=== PATIENT | male | born 1940 | race Caucasian/White ===

== ENCOUNTER → 2018-09-28 08:13 | Outpatient (CLI) | payer MEDICARE, OTHER, SELFPAY ==
[2018-09-28 09:22] LABS: Add Manual Diff / Slide Review NO; Basophils Absolute Auto 0 /uL (0-100); Basophils Percent Auto 0.3 % (0-2); Eosinophils Absolute Auto 200 /uL (0-450); Eosinophils Percent Auto 2.3 % (2-4); Hematocrit 46.7 % (41-53); Hemoglobin 15.8 g/dL (13.5-17.5); Lymphocytes Absolute Auto 1700 /uL (1100-4500); Lymphocytes Percent Auto 23.8 % (25-40); Mean Corpuscular HGB Conc 33.8 % (30-36); Mean Corpuscular Hemoglobin 29.4 PG (26-34); Monocytes Absolute Auto 600 /uL (0-900); Monocytes Percent Auto 7.7 % (3-14); Neutrophils Absolute Auto 4800 /uL (1500-7000); Neutrophils Percent Auto 65.9 % (50-75); Platelet Count 215 X10^3/uL (150-400); Red Blood Cell Count 5.37 X10^6/uL (4.5-5.9); Red Cell Distribution Width 14.1 % (11.6-14.8); White Blood Cell Count 7.3 X10^3/uL (4.5-11.0)
[2018-09-28 10:37] LABS: TSH w/ Reflex to FT4 2.77 uIU/mL (0.47-4.68)
[2018-09-28 11:10] LABS: Alanine Aminotransferase 10 IU/L (21-72); Albumin 4.4 g/dL (3.5-5.0); Albumin Globulin Ratio 1.6 (1.0-2.8); Alkaline Phosphatase 89 U/L (38-126); Aspartate Aminotransferase 32 IU/L (17-59); Bilirubin Total 0.9 mg/dL (0.2-1.3); Blood Urea Nitrogen 21 mg/dL (9-20); Calcium 9.6 mg/dL (8.4-10.2); Carbon Dioxide 26 mmol/L (22-32); Chloride 106 mmol/L (98-107); Cholesterol 195 mg/dL (140-199); Estimated Glomerular Filt Rate > 60.0 mL/min (>60); Globulin 2.8 g/dL (1.7-4.1); Glucose 104 mg/dL (80-110); HDL Cholesterol 43 mg/dL (40-60); HEMOLYSIS < 15 (0-50); LDL Cholesterol Calculated 129 mg/dL (<100); Potassium 4.5 mmol/L (3.4-5.1); Sodium 140 mmol/L (137-145); Total Protein 7.2 g/dL (6.3-8.2); Triglycerides 116 mg/dL (35-150)
[2018-09-28 12:14] LABS: Folate > 20.0 ng/mL (2.76-20.0); Vitamin B12 309 pg/mL (239-931)
== END ==
PROVIDERS: PCP Family Medicine; Visit Provider Family Medicine
DX: E78.5 Hyperlipidemia, unspecified (principal); G96.9 Disorder of central nervous system, unspecified; I10 Essential (primary) hypertension; R25.1 Tremor, unspecified
CPT/HCPCS: 36415; 80053; 80061; 82607; 82746; 84443; 85025

== ENCOUNTER 2019-08-23 11:44 | Inpatient (IN) | payer MEDICARE, OTHER, SELFPAY ==
[2019-08-23] VITALS (10 sets, daily range): BP systolic 106–129; BP diastolic 61–74; PULSE 64–87; RESP 16–18; TEMP 37.2–38.7; O2SAT 92–97; BMI 26.3
--- NOTE | 2019-08-23 12:35 | DI.RAD.S_ITS ---
PROCEDURE: XR CHEST 1V INDICATIONS: CHANGE FROM 2 VIEW, TO 1 VIEW TECHNIQUE: One view of the chest was acquired. COMPARISON: None. FINDINGS: Surgical changes and devices: None. Lungs and pleura: Lungs are clear. No pleural effusions or pneumothorax. Mediastinum: Mediastinal contours appear normal. Heart size is normal. Bones and chest wall: No suspicious bony lesions. Age-appropriate bony degenerative changes are seen. Overlying soft tissues appear unremarkable. IMPRESSION: Unremarkable portable chest study for age. As clinically appropriate, a short-term followup chest series (with PA and lateral views) performed in deep inspiration is suggested for further evaluation. Dictated by: Castillo Cheng M.D. on 08/23/2019 at 12:06 Approved by: Castillo Cheng M.D. on 08/23/2019 at 12:06
--- NOTE | 2019-08-23 12:37 | PM.HP.1 ---
History of Present Illness History of Present Illness Date Patient Seen: 08/23/19 Time Patient Seen: 11:37 Chief complaint: Fever,Weakness,Cough Narrative: 78-year-old male who lives at [facility] patient has a history consistent with Parkinson's disease. He lives fairly independently although he is no longer driving. Patient states last week he began to feel ill. He had some mild coughing congestion about a week ago. Did not have productive sputum or fevers or chills. Said that lasted for about 24-48 hours. And then began to feel little bit weak and tired had decreased appetite and decreased energy patient then on Tuesday had a low-grade temperature. A temperature is been on and off since Tuesday. He said at that time his cough went away but he still had the temperature weakness decreased appetite. He said it became more and more difficult for him to get up and walk. In addition to the weakness he began to have shoulder neck and back pain and discomfort. Says is mild to moderate intensity. He finds that it is uncomfortable with position changes or even just holding still. In addition to the low-grade fever he also feels at times that he has had shortness of breath in addition to the back and neck discomfort. Says he is not coughing now. He does not have headache or blurry vision he says he is hearing fine he is swallowing okay patient states he is not nauseated but not hungry. He is having no abdominal pain. He has had no difficulty with urination or change in his bowel movements. Says it is hard for him to walk because he is weak. His temperatures at home with been radiating anywhere he said between 99 and 101. In my office is temperature is 101?. He is mildly hypotensive he is weak and having a hard time standing on his own and needs support for movement. Other than being at [facility] he has had no other previous exposures risks such as travel or unanticipated guest as they have been on lock-down. Patient History Surgical History History of cataract removal with insertion of prosthetic lens (Resolved) Status post arthroscopy (Resolved) Family & Social History Tobacco & Substance use: Smoking Status Never smoker alcohol intake current Meds Home Medications and Allergies Home Medications Medication Instructions Recorded Confirmed Type ASPIRIN (#ASPIR 81) 81 mg PO Q DAY #0 07/07/11 08/23/19 History Fish Oil (#OMEGA-3 FISH OIL) 3,600 mg PO #0 07/08/11 08/23/19 History Lutein (#LUTEIN) 6 mg PO QDAY #0 07/08/11 08/23/19 History cholecalciferol (vitamin D3) 1,000 iu PO QDAY #0 07/08/11 08/23/19 History [Vitamin D3] latanoprost [Xalatan] 1 drp OPHTH HS #0 07/08/11 08/23/19 History ranibizumab [Lucentis] 0.5 mg IO Q 8 WEEKS #0 07/08/11 08/23/19 History vitamins A,C,X-lhnf-spgjsx 2 sgl PO Q DAY #0 07/08/11 08/23/19 History [PreserVision AREDS] carbidopa 25 mg-levodopa 100 mg 1 tab PO TID 10/11/18 08/23/19 History tablet Allergies Allergy/AdvReac Type Severity Reaction Status Date / Time dexamethasone [From MAXITROL] Allergy Unknown unk Verified 08/23/19 11:25 neomycin [From MAXITROL] Allergy Unknown unk Verified 08/23/19 11:25 polymyxin B [From MAXITROL] Allergy Unknown unk Verified 08/23/19 11:25 polmycin Allergy Unknown unk Uncoded 08/23/19 11:25 triamethophin Allergy Unknown unk Uncoded 08/23/19 11:25 Exam Narrative Exam Narrative: Gen.: Alert oriented weak appearing somewhat pale HEENT: Pupils equal round and reactive tympanic membranes are clear oral mucosa is moist neck is supple no appreciable lymphadenopathy Cardio: S1-S2 systolic murmur present regular Respiratory: Lungs show no wheezes rhonchi or crackles normal respiratory effort. Abdomen: Soft nontender no rebound no guarding no appreciable liver spleen enlargement Extremities: Patient has full range of motion of extremities and 2+ reflexes patient has a resting tremor more prominent on his right hand than left Neurologic: Cranial nerves 2-12 intact. Tremor associated and some mild hyper reflexia Objective Labs Result Diagrams: 08/23/19 12:41 08/23/19 12:41 Assessment & Plan Assessment & Plan narrative: 78-year-old male with a fever hypotension intermittent cough. Patient seen and evaluated in the clinic. Because of his weakness hypotension fever and cough his age and underlying Parkinson's disease he will be admitted the hospital for observation and further workup and evaluation of his underlying medical condition. I am concerned initially for with infectious etiologies including pneumonia urinary tract infection or viral pneumonia. He will be admitted to the hospital for further evaluation and workup. He will be provided With a 500 cc fluid bolus. He will have a CBC comprehensive metabolic profile procalcitonin and lactic acid. Patient will have blood cultures drawn at the onset of can of fever. We ordered a chest x-ray and EKG He will have a viral PCR panel. Because of his difficult historian vague nature of his symptoms. Will do a CPK and troponin well to rule out underlying cardiac activity. He will be placed on DVT prophylaxis. He will be placed on droplet precautions and protection. Will monitor and evaluate the patient for symptoms over the next 24 hours. Because of his weakness and dehydration. He will be administered IV fluids. Will follow closely his laboratory test results. I reviewed with him his current code status which is a no code.
[2019-08-23] MEDS: SODIUM CHLORIDE 0.9% 500 ML 1000 ML IV (12:45)
[2019-08-23 12:51] LABS: INR 1.1 (0.9-1.3); Prothrombin Time 12.2 SECONDS (10.1-12.7)
[2019-08-23 12:54] LABS: PTT Partial Thromboplastin Tim 35 SECONDS (26.4-36.2)
[2019-08-23 12:57] LABS: Add Manual Diff / Slide Review NO; Basophils Absolute Auto 0 /uL (0-100); Basophils Percent Auto 0.1 % (0-2); Eosinophils Absolute Auto 0 /uL (0-450); Eosinophils Percent Auto 0.2 % (2-4); Hematocrit 35.1 % (41-53); Lymphocytes Absolute Auto 400 /uL (1100-4500); Lymphocytes Percent Auto 7.5 % (25-40); Mean Corpuscular HGB Conc 34.1 % (30-36); Mean Corpuscular Hemoglobin 29.7 PG (26-34); Mean Corpuscular Volume 87.1 fL (80-100); Monocytes Absolute Auto 300 /uL (0-900); Monocytes Percent Auto 6.4 % (3-14); Neutrophils Absolute Auto 4300 /uL (1500-7000); Neutrophils Percent Auto 85.8 % (50-75); Platelet Count 122 X10^3/uL (150-400); Red Blood Cell Count 4.03 X10^6/uL (4.5-5.9); Red Cell Distribution Width 13.8 % (11.6-14.8)
[2019-08-23 12:58] LABS: Creatine Kinase 246 U/L (55-170)
[2019-08-23 13:00] LABS: Alanine Aminotransferase 9 IU/L (<50); Albumin 3.9 g/dL (3.5-5.0); Albumin Globulin Ratio 1.3 (1.0-2.8); Alkaline Phosphatase 92 U/L (38-126); Aspartate Aminotransferase 72 IU/L (17-59); Bilirubin Total 0.7 mg/dL (0.2-1.3); Blood Urea Nitrogen 26 mg/dL (9-20); Calcium 8.5 mg/dL (8.4-10.2); Carbon Dioxide 25 mmol/L (22-32); Chloride 102 mmol/L (98-107); Estimated Glomerular Filt Rate > 60.0 mL/min (>60); Globulin 3.1 g/dL (1.7-4.1); Glucose 115 mg/dL (80-110); HEMOLYSIS 41 (0-50); Lactate (Lactic Acid) 0.7 mmol/L (0.7-2.1); Potassium 3.9 mmol/L (3.4-5.1); Sodium 138 mmol/L (137-145)
[2019-08-23 13:11] LABS: Troponin I < 0.012 ng/mL (0.01-0.034)
[2019-08-23 13:13] LABS: CKMB % Relative Index 0.8 % (1.5-5.0); Creatine Kinase MB 1.94 ng/mL (<2.37)
[2019-08-23 13:27] LABS: Procalcitonin < 0.05 ng/mL (<0.5)
[2019-08-23 14:05] LABS: Adenovirus Not Detected (Not Detect); Bordetella pertussis Not Detected (Not Detect); Chlamydophila pneumoniae Not Detected (Not Detect); Coronavirus 229E Not Detected (Not Detect); Coronavirus HKU1 Not Detected (Not Detect); Coronavirus NL 63 Not Detected (Not Detect); Coronavirus OC43 Not Detected (Not Detect); Human Metapneumovirus Not Detected (Not Detect); Human Rhinovirus/Enterovirus Not Detected (Not Detect); Influenza A Not Detected (Not Detect); Influenza B Not Detected (Not Detect); Mycoplasma pneumoniae Not Detected (Not Detect); Parainfluenza Virus 1 Not Detected (Not Detect); Parainfluenza Virus 2 Not Detected (Not Detect); Parainfluenza Virus 3 Not Detected (Not Detect); Parainfluenza Virus 4 Not Detected (Not Detect); Respiratory Syncytial Virus Not Detected (Not Detect)
[2019-08-23] MEDS: SODIUM CHLORIDE 0.9% 1,000 ML 120 ML IV (14:27)
[2019-08-23 15:05] LABS: Bacteria Urine None Seen
[2019-08-23 15:07] LABS: Appearance Urine UA CLEAR; Bilirubin Urine UA NEGATIVE (NEGATIVE); Color Urine UA YELLOW; Glucose Urine UA NEGATIVE (Negative); Ketones Urine UA TRACE (NEGATIVE); Leukocyte Esterase Urine UA NEGATIVE (NEGATIVE); Nitrite Urine UA NEGATIVE (Negative); Occult Blood Urine UA NEGATIVE (Negative); Protein Urine UA TRACE (Negative); Urobilinogen Urine UA 0.2 E.U./dL (0.2); pH Urine UA 5.5 (4.5-8.0)
[2019-08-23 15:20] LABS: Culture Indicated Urine Cult Not Indicated; RBC Urine 0-1/HPF (0-5/HPF); WBC Urine 1-5/HPF (0-5/HPF)
--- NOTE | 2019-08-23 15:25 | PC.NURSE ---
Pt was brought to the AC floor via wheelchair from the clinic at approx. 1200. Pt was made comfortable in room 223 and placed on droplet precautions for his respiratory symptoms. Pt was swabbed for respiratory panel, IV started in LUE, labs and UA sent for analysis. 500ml bolus administered per order. SCD's placed. Pt has been oriented to the room. He is in agreement to use call light to make his needs known.
--- NOTE | 2019-08-23 16:55 | PT-IP ANOTE ---
Received PT orders and reviewed the chart. Pt is undergoing rule out testing for COVID19. PT will hold evaluation until status is clarified or test result received.
[2019-08-23] MEDS: CARBIDOPA-LEVODOPA 25/100 TABLET 1 EACH PO (17:35)
[2019-08-23] MEDS: ACETAMINOPHEN 325 MG TABLET 650 MG PO (20:26)
[2019-08-24] VITALS (8 sets, daily range): BP systolic 109–136; BP diastolic 60–90; PULSE 63–101; RESP 18–22; TEMP 37.3–38.2; O2SAT 91–95
[2019-08-24] MEDS: SODIUM CHLORIDE 0.9% 1,000 ML 120 ML IV (01:35)
--- NOTE | 2019-08-24 06:56 | PM.PN.1 ---
Subjective Subjective Date Patient Seen: 08/24/19 Time Patient Seen: 06:56 Interval history: Patient had a good night. Still feeling weak muscle aches. Not having much of an appetite. Received IV fluids over the evening. Says he would like to try little bit of food. Still unsteady on his feet and frequent urination. Has complaints of intermittent cough no shortness of breath some mild neck and low back pain. Exam Vital Signs (past 8 hours): - 08/23/19 23:00 08/23/19 23:34 08/24/19 04:20 Temperature 101.1 F H Pulse Rate 65 78 Respiratory Rate 18 18 Blood Pressure 113/63 109/67 Pulse Oximetry 92 92 91 08/24/19 06:00 Temperature 100.8 F H Pulse Rate Respiratory Rate Blood Pressure Pulse Oximetry Oxygen Delivery Method Room Air Oxygen Flow Rate 0 Narrative Exam Narrative: Gen.: Alert no apparent distress HEENT: Pupils equal round and reactive or mucosa is dry neck is supple Cardio: S1-S2 regular rate and rhythm systolic murmur present Respiratory: Clear Abdomen: Soft nontender no rebound or guarding no liver spleen enlargement no appreciable hernias Extremities: Full range of motion Neurologic: Patient has a tremor. Objective Labs Result Diagrams: 08/23/19 12:41 08/23/19 12:41 Labs: Laboratory Results - last 24 hr 08/23/19 08/23/19 08/23/19 12:35 12:41 12:41 WBC 5.0 RBC 4.03 L Hgb 12.0 L Hct 35.1 L MCV 87.1 MCH 29.7 MCHC 34.1 RDW 13.8 Plt Count 122 L Neut % (Auto) 85.8 H Lymph % (Auto) 7.5 L [place] % (Auto) 6.4 Eos % (Auto) 0.2 L Baso % (Auto) 0.1 Neut # (Auto) 4300 Lymph # (Auto) 400 L [place] # (Auto) 300 Eos # (Auto) 0 Baso # (Auto) 0 PT 12.2 INR 1.1 APTT 35 Sodium Potassium Chloride Carbon Dioxide BUN Creatinine Estimated GFR BUN/Creatinine Ratio Glucose Lactate Calcium Total Bilirubin AST ALT Alkaline Phosphatase Total Creatine Kinase CK-MB (CK-2) CK-MB (CK-2) Rel Index Troponin I Total Protein Albumin Globulin Albumin/Globulin Ratio Procalcitonin Urine Color Urine Appearance Urine pH Ur Specific [place] Urine Protein Urine Glucose (UA) Urine Ketones Urine Occult Blood Urine Nitrate Urine Bilirubin Urine Urobilinogen Ur Leukocyte Esterase Urine RBC Urine WBC Urine Bacteria Ur Culture Indicated? Chlamy pneumoniae PCR Not detected Adenovirus (PCR) Not detected B.parapertussis DNA PCR Not detected Coronavirus OC43 (PCR) Not detected Coronavirus HKU1 (PCR) Not detected Coronavirus 229E (PCR) Not detected Coronavirus NL63 (PCR) Not detected Human Metapneumovir PCR Not detected Influenza Type A (PCR) Not detected Influenza Type B (PCR) Not detected M. pneumoniae (PCR) Not detected Parainfluenza 1 (PCR) Not detected Parainfluenza 2 (PCR) Not detected Parainfluenza 3 (PCR) Not detected Parainfluenza 4 (PCR) Not detected RSV (PCR) Not detected Entero/Rhino (PCR) Not detected 08/23/19 08/23/19 08/23/19 12:41 12:41 12:41 WBC RBC Hgb Hct MCV MCH MCHC RDW Plt Count Neut % (Auto) Lymph % (Auto) [place] % (Auto) Eos % (Auto) Baso % (Auto) Neut # (Auto) Lymph # (Auto) [place] # (Auto) Eos # (Auto) Baso # (Auto) PT INR APTT Sodium 138 Potassium 3.9 Chloride 102 Carbon Dioxide 25 BUN 26 H Creatinine 0.84 Estimated GFR > 60.0 BUN/Creatinine Ratio 31.0 H Glucose 115 H Lactate 0.7 Calcium 8.5 Total Bilirubin 0.7 AST 72 H ALT 9 Alkaline Phosphatase 92 Total Creatine Kinase CK-MB (CK-2) CK-MB (CK-2) Rel Index Troponin I Total Protein 7.0 Albumin 3.9 Globulin 3.1 Albumin/Globulin Ratio 1.3 Procalcitonin < 0.05 Urine Color Urine Appearance Urine pH Ur Specific [place] Urine Protein Urine Glucose (UA) Urine Ketones Urine Occult Blood Urine Nitrate Urine Bilirubin Urine Urobilinogen Ur Leukocyte Esterase Urine RBC Urine WBC Urine Bacteria Ur Culture Indicated? Chlamy pneumoniae PCR Adenovirus (PCR) B.parapertussis DNA PCR Coronavirus OC43 (PCR) Coronavirus HKU1 (PCR) Coronavirus 229E (PCR) Coronavirus NL63 (PCR) Human Metapneumovir PCR Influenza Type A (PCR) Influenza Type B (PCR) M. pneumoniae (PCR) Parainfluenza 1 (PCR) Parainfluenza 2 (PCR) Parainfluenza 3 (PCR) Parainfluenza 4 (PCR) RSV (PCR) Entero/Rhino (PCR) 08/23/19 08/23/19 12:45 15:04 WBC RBC Hgb Hct MCV MCH MCHC RDW Plt Count Neut % (Auto) Lymph % (Auto) [place] % (Auto) Eos % (Auto) Baso % (Auto) Neut # (Auto) Lymph # (Auto) [place] # (Auto) Eos # (Auto) Baso # (Auto) PT INR APTT Sodium Potassium Chloride Carbon Dioxide BUN Creatinine Estimated GFR BUN/Creatinine Ratio Glucose Lactate Calcium Total Bilirubin AST ALT Alkaline Phosphatase Total Creatine Kinase 246 H CK-MB (CK-2) 1.94 CK-MB (CK-2) Rel Index 0.8 L Troponin I < 0.012 Total Protein Albumin Globulin Albumin/Globulin Ratio Procalcitonin Urine Color Yellow Urine Appearance Clear Urine pH 5.5 Ur Specific [place] 1.020 Urine Protein Trace H Urine Glucose (UA) Negative Urine Ketones Trace H Urine Occult Blood Negative Urine Nitrate Negative Urine Bilirubin Negative Urine Urobilinogen 0.2 Ur Leukocyte Esterase Negative Urine RBC 0-1/hpf Urine WBC 1-5/hpf Urine Bacteria None seen Ur Culture Indicated? Cult not indicated Chlamy pneumoniae PCR Adenovirus (PCR) B.parapertussis DNA PCR Coronavirus OC43 (PCR) Coronavirus HKU1 (PCR) Coronavirus 229E (PCR) Coronavirus NL63 (PCR) Human Metapneumovir PCR Influenza Type A (PCR) Influenza Type B (PCR) M. pneumoniae (PCR) Parainfluenza 1 (PCR) Parainfluenza 2 (PCR) Parainfluenza 3 (PCR) Parainfluenza 4 (PCR) RSV (PCR) Entero/Rhino (PCR) Assessment & Plan Assessment & Plan narrative: 78-year-old male with Parkinson's disease living at assisted living with fever weakness and decreased ability to ambulate. Patient's influenza swab and PCR for respiratory panel is negative. Patient's chest x-ray looks good he is not hypoxic. COVID test is negative. No clear source of his fever as of yet. Cannot this cleared viral etiology. His urinalysis is good. Some mild back pain and muscle aches. I do not think he has underlying disc itis. His white blood cell count is normal. He is a little bit hypotensive and that is responded well to fluids. He still having a temperature and cough. Certainly stable enough to be transferred back to the assisted living. But I do not think will take him because of his fever and that is why he was brought in generally anyways because of that and his cough. Dehydration. Received IV fluid bolus yesterday and IV fluid last night. Will go ahead and decrease those down. Patient is taking good oral intake although not significant amount of solid foods but he is doing okay with fluids. Parkinson's disease. Resume regular Parkinson's medication. DVT prophylaxis. Patient will be continued on Lovenox. Disposition and plan discharge back to [facility] awaiting his COVID test. Or patient to become afebrile. Quality VTE Deep Vein Thrombosis/Pulmonary Embolism Present on Admission: No
[2019-08-24 07:40] LABS: Add Manual Diff / Slide Review NO; Basophils Absolute Auto 0 /uL (0-100); Basophils Percent Auto 0.3 % (0-2); Eosinophils Absolute Auto 0 /uL (0-450); Eosinophils Percent Auto 0.2 % (2-4); Hematocrit 41.6 % (41-53); Hemoglobin 14.1 g/dL (13.5-17.5); Lymphocytes Absolute Auto 800 /uL (1100-4500); Lymphocytes Percent Auto 11.3 % (25-40); Mean Corpuscular HGB Conc 33.8 % (30-36); Mean Corpuscular Hemoglobin 29.1 PG (26-34); Mean Corpuscular Volume 86.2 fL (80-100); Monocytes Absolute Auto 300 /uL (0-900); Monocytes Percent Auto 4.8 % (3-14); Neutrophils Absolute Auto 6000 /uL (1500-7000); Neutrophils Percent Auto 83.4 % (50-75); Platelet Count 145 X10^3/uL (150-400); Red Blood Cell Count 4.83 X10^6/uL (4.5-5.9); Red Cell Distribution Width 14.1 % (11.6-14.8); White Blood Cell Count 7.2 X10^3/uL (4.5-11.0)
[2019-08-24 07:54] LABS: Alanine Aminotransferase 50 IU/L (<50); Albumin 3.2 g/dL (3.5-5.0); Albumin Globulin Ratio 1.1 (1.0-2.8); Alkaline Phosphatase 89 U/L (38-126); Aspartate Aminotransferase 63 IU/L (17-59); BUN Creatinine Ratio 21.3 (6-22); Bilirubin Total 0.7 mg/dL (0.2-1.3); Blood Urea Nitrogen 16 mg/dL (9-20); Calcium 8.1 mg/dL (8.4-10.2); Carbon Dioxide 26 mmol/L (22-32); Chloride 105 mmol/L (98-107); Estimated Glomerular Filt Rate > 60.0 mL/min (>60); Globulin 2.8 g/dL (1.7-4.1); Glucose 103 mg/dL (80-110); HEMOLYSIS < 15 (0-50); Potassium 3.6 mmol/L (3.4-5.1); Sodium 139 mmol/L (137-145)
--- NOTE | 2019-08-24 08:30 | PT-IP ANOTE ---
Hold PT eval pending Coronavirus testing
[2019-08-24] MEDS: ENOXAPARIN 40 MG/0.4 ML SYRINGE SUBCUT (08:32)
[2019-08-24] MEDS: CARBIDOPA-LEVODOPA 25/100 TABLET 1 EACH PO ×3 (08:32→16:42)
--- NOTE | 2019-08-24 08:45 | CM.DANOTE ---
Addendum entered by Tracy Granado LPN 08/24/19 14:01: CAL Shrestha called back this afternoon and stated she would provide a form that the facility now has outlining what must be confirmed before they are able to accept a resident back to the facility who is on a COVID 19 rule out. Will make sure Dr. Cordova or rounding partners are aware. Have also alerted Sushma Kendall to the information and she states she will be sending this on to appropriate staff. Addendum entered by Tracy Granado LPN 08/24/19 08:58: PT was ordered but is on hold due to rule out process. See PT notes. Original Note: Discharge Planning/Care Management DCP: assessment: case received, EMR reviewed: Pt is on Rule Out Covid 19 precautions. Pt is an 78 year old male who admitted yesterday to care of PCP: Dr. Cordova. Payer: Medicare and [facility]. Admission status: in review: per UR CAL Lara. Pt does have underlying diagnosis of Parkinson's disease. Noted that pt lives at [facility]. Spoke with Henrietta Bunn: RN director. She confirmed that pt does reside [facility]. She does know that she seems at baseline to be A/O and gets around independently without an assistive device. Pt's son Pantera has been in contact with the facility: [place]: [phone]. It is unknown if he is the POA. Dr. Cordova states in his dictation that plan is to await the rule out process and that this could be in his home setting if he becomes afebrile. P: reach out to Pantera for discussion of d/c issues and options as POC unfolds and more is known. Advanced directive, confirm from FAMILY Start: 08/23/19 14:53 Freq: Q24H Status: Active Protocol: Document 08/23/19 14:53 [facility] (Rec: 08/23/19 14:55 [facility] [id number]) Advance Directive, confirm on record Time 14:55 Person contacted patient Copy received No CM Discharge Assessment Start: 08/24/19 08:44 Freq: Status: Active Protocol: Document 08/24/19 08:44 ITV (Rec: 08/24/19 08:45 ITV [id number]) Discharge Planning Assessment Advance Directives? No History Provided By Medical Record Prior Living Arrangements Group Home Facility Facility Name Admitted From: [facility] Willing to Return to Facility? Yes Review Status In Process
[2019-08-24] MEDS: ACETAMINOPHEN 325 MG TABLET 650 MG PO (10:44)
--- NOTE | 2019-08-24 15:47 | PC.NURSE ---
Day shift A&Ox3. VSS, slightly febrile. C/o neck/low back pain throughout shift (consistent with baseline); otherwise denies pain. Small frequent voids, with frequency and urgency; uses urinal at bedside. Special contact precautions for r/o COVID-19 observed throughout shift.
[2019-08-24] MEDS: HYDROCODONE/ACET 5/325 TABLET 1 TAB PO (17:42)
[2019-08-25] VITALS (13 sets, daily range): BP systolic 123–144; BP diastolic 63–80; PULSE 63–100; RESP 14–20; TEMP 36.6–37.8; O2SAT 92–96
[2019-08-25] MEDS: CARBIDOPA-LEVODOPA 25/100 TABLET 1 EACH PO ×3 (05:51→16:56)
--- NOTE | 2019-08-25 06:08 | PC.NURSE ---
Dr. Yanes called and notified of pts. COVID 19 result being positive, will read up her email regarding notifying Dr. Bernardo, otherwise no further orders and instructions given to me but to continue to observe droplet precaution.
[2019-08-25] MEDS: CALCIUM CARBONATE 500 MG TAB 1000 MG PO (06:36)
[2019-08-25] MEDS: ACETAMINOPHEN 325 MG TABLET 650 MG PO ×2 (06:36→11:06)
[2019-08-25 08:07] LABS: COVID19 Sendout Detected (Not Detected)
[2019-08-25] MEDS: ENOXAPARIN 40 MG/0.4 ML SYRINGE SUBCUT (11:05)
[2019-08-25 11:18] LABS: Ferritin 558 ng/mL (18-464)
--- NOTE | 2019-08-25 11:34 | PM.PN.1 ---
Subjective Subjective Date Patient Seen: 08/25/19 Time Patient Seen: 09:34 Interval history: Patient had a good night. More steady on his feet per nursing. Able to use bedside urinal which he does frequently. He is getting IV fluids. Feels appetite is better. No shortness of breath. We talk about his confirmed diagnosis of COVID-19. He tells me that he was eating in the dining room at [facility] until the isolation policy began. Hasn't travelled. Has had frequent contact with the woman who brought him into clinic. Would like me to call his son. Exam Vital Signs (past 8 hours): - 08/25/19 03:41 08/25/19 04:00 08/25/19 07:35 Temperature 98.6 F 97.8 F Pulse Rate 100 H 68 Respiratory Rate 16 20 Blood Pressure 123/63 127/68 Pulse Oximetry 96 96 92 Oxygen Delivery Method Room Air Oxygen Flow Rate 0 Narrative Exam Narrative: Gen.: Alert no apparent distress HEENT: Pupils equal round and reactive or mucosa is moist Cardio: S1-S2 regular rate and rhythm Respiratory: Clear Abdomen: Soft nontender no rebound or guarding Extremities: Full range of motion Neurologic: Patient has a tremor most noticeble in his hands. Objective Labs Result Diagrams: 08/24/19 07:30 08/24/19 07:30 Labs: Laboratory Results - last 24 hr 08/23/19 08/24/19 12:46 07:20 Ferritin 558 H Coronavirus (PCR) Detected A Assessment & Plan Assessment & Plan narrative: 78-year-old male with Parkinson's disease living at [facility] assisted living with fever weakness and decreased ability to ambulate. Patient's influenza swab and PCR for respiratory panel is negative. Patient's chest x-ray looks good he is not hypoxic. COVID-19 test is positive. His ferritin, AST, ALT were elevated. Has been afebrile overnight with Tmax of 100 F. Dehydration. Has Received IV fluids and is normotensive now. Patient is taking good oral intake although not significant amount of solid foods but he is doing okay with fluids. Parkinson's disease. Resume regular Parkinson's medication. DVT prophylaxis. Patient will be continued on Lovenox. Disposition and plan discharge back to [facility] when he has been 72 hours afebrile, this would be Tuesday AM. Quality VTE Deep Vein Thrombosis/Pulmonary Embolism Present on Admission: No
--- NOTE | 2019-08-25 11:42 | CM.DPC ---
Addendum entered by Tracy Granado LPN 08/25/19 12:23: Have now had further discussions with [facility], Dr. Spencer and pt's son Pantera: cell: [phone]. Plan is now for pt to d/c to home self-quarantine setting and he will do this at his son's home. Dr. Yanes says he will be ready for d/c on Tuesday, 08/25. She has talked with pt who is agreeable to same. [facility]dan Quinn states that the paperwork sent over is not meant to cover return of pts + for COVID 19. She says they are still looking at the protocol and following closely with the health department and the [facility] quidelines. It may be that a new test showing -for COVId 19 will be needed before a resident can return to their facility. She states this is the first person in their facility to have a + test so their protocols are a work in progress. Pantera states that he is very comfortable with the plan to take pt into their home and he will follow direction from the physician. He plans to leave in the morning as will need to take a ferry etc to get her and will also try to obtain some of pt's personal items at /currently on lockdown for outside visitors. Plan is for pt to leave tomorrow afternoon. Will be following closely tomorrow to help facilitate same. Addendum entered by Tracy Granado LPN 08/25/19 11:49: Dr. Yanes has now left a for this [place] funeral planner. She confirms that she spoke with Pantera and that if [facility] is not able to accept pt back to the facility on Tuesday he and his will take him to their home on [place]. Will follow up. Original Note: DCP: continued: case discussed with Dr. Yanes, here to see pt this weekend. She states pt is now confirmed COVID 19 +. Gave her the paperwork given to CM dept yesterday by CAL Bunn/[facility]. She stated that pt seemed to be improving and was hopeful that he could return to his apartment. She took paperwork with her to review and was also going to discuss protocol going forward for management of the + COVID 19. She is encouraging pt to move around as much as possible in his room and to do his Parkinson's exercises. She agree to call pt's son Pantera with an update.
--- NOTE | 2019-08-25 12:45 | PT.IIE ---
Surgical History (Last Reviewed 08/23/19 @ 12:41 by Zain Cordova MD) History of cataract removal with insertion of prosthetic lens (Resolved) Status post arthroscopy (Resolved) Physical Therapy Inpatient Evaluation/Re-Eval M1 PT/OT-IP Prior Functional Status Start: 08/24/19 08:30 Freq: NEEDED Status: Active Protocol: Document 08/25/19 11:00 HH (Rec: 08/25/19 12:45 HH [email or web address]) Medical Review Prior Functional Status Medical History Reviewed Yes Diet/Fluid Consistency Regular Communication no deficits note. able to make needs known Mobility and Gait able to amb without AD. Pt stated he usually walks 2-3 miles a day if it;s not raining. Pt does has PD at baseline with noticeable resting tremors and he walks with a sloughed gait. Activities of Daily Living and IADL's independent for ADLs and his FDC does meal preparation. Social History Household Members none Living Arrangements Jail Facility Number of Stairs To Enter/Railing? level entry Home Environment High Toilet,Walk in Shower Home Equipment Grab Bars Near Toilet,Grab Bars In Shower Employment Status Retired Additional Social History Comment Pt lives in [facility] and does go to his therapy session for his PD few times a week. Pt was eating in the dining room at [facility] until the isolation policy began. Hasn't travelled . Has had frequent contact with the woman who brought him into clinic. Due to his +ve COVID-19 result, Dr. Yanes spoke with Pantera (pt's son) and that if [facility] is not able to accept pt back to the facility on Tuesday he and his will take him to their home on [place]. M2 PT-IP Current Condition Start: 08/24/19 08:30 Freq: NEEDED Status: Active Protocol: Document 08/25/19 11:00 HH (Rec: 08/25/19 12:45 HH [email or web address]) Physical Therapy Current Condition Current Condition Evaluation Date 08/25/19 Treatment Diagnosis +ve COVID-19, fever, generalized weakness, PD at baseline Onset Date 08/23/19 Precautions Other Precautions Full PPE for droplet and contact precautions d/t coronaviurs Weight Bearing Status Weight Bearing Status Full Weight Bearing M3 PT-IP Subjective Start: 08/24/19 08:30 Freq: NEEDED Status: Active Protocol: Document 08/25/19 11:00 HH (Rec: 08/25/19 12:45 HH [email or web address]) Subjective Physical Therapy Visit Type Type Initial Evaluation Visit Start Time 11:00 Visit Stop Time 11:25 Total Visit Minutes 25 Notes This PT went in with CAL Lou to assist pt for bathroom access. Number of AREA REPRESENTATIVE Visits 0 Physical Therapy Visit Comments Patient Comments Im feeling better and i dont feel weak now. Patient Goals To return to [facility] Pain Assessment Pain Present Pain Present Denied Pain M4 PT-IP Mobility and Gait Start: 08/24/19 08:30 Freq: NEEDED Status: Active Protocol: Document 08/25/19 11:00 HH (Rec: 08/25/19 12:45 [email or web address]) PT-Bed Mobility Assessment Rolling Type of Rolling Roll to Left Level of Assist Independent Supine to Sit Supine to Sit Independent Scooting Scooting to Edge of Bed Independent PT-Transfer Assessment Sit to and From Stand Sit to and from Stand Standby Assistance,Use of Upper Extremities Equipment Transfer Assistive Device None Orthotic/Prosthetic Devices or Brace: No Transfers Transfer Destination Bed,Chair,Toilet Transfer Technique Stand Step Pivot Transfer Ability Level of Assist Standby Assistance,Use of Upper Extremities Comments Mobility Comments Pt was in bed upon PT arrival. Pt then sat up at L EOB and requested to use bathroom for BM. He stood up at first without AD and gait belt and stated he felt very safe at this point. Proceeded to amb to bathroom with PT assisting mobilizing IV pole. Pt was able to safely transfer to toilet chair without using grab bar/ AD. Pt then had a large solid BM. Pt then stood up without UE push off and amb towards chair and sat down. BP at 120s/ 50s with HR 100 and temp at 97F No SOB/ discomfort but did have a dry cough once. Pt then requested to get dressed and this PT provided him his home clothes and he was able to natalia both shirt and jeans in standing unsupported safely. Pt overall demonstrated mild resting tremors in both UEs but he appeared safe for all mobility witohut shuffling gait / LOB. call light placed within reach after he sat down in chair. Educated pt to cont mobilize within the room to promote functional mobility and strength. This PT exited pt's room and sanitized PPE with sani-cloth. Gait Assessment Gait Gait Assistance Required: Standby Assistance Distance (Feet) 25 Able to Maintain Weight Bearing Status Yes During Gait Assistive Devices Assistive Device None Orthotic/Prosthetic Devices or Brace: No Gait Deviations General Gait Pattern Decreased Stride Length, Decreased Feet Clearance Factors Limiting Gait Function Factors Limiting Gait Function Decreased Activity Tolerance, Decreased Strength,Respiratory Distress Comments Gait Comments see mobility comments. PT-Balance Assessment Comments Other Balance Tests/Deviations/Treatment do not need assessment. : M5 PT-IP Objective Assessments Start: 08/24/19 08:30 Freq: NEEDED Status: Active Protocol: Document 08/25/19 11:00 (Rec: 08/25/19 12:45 [email or web address]) Orientation Orientation/Cognition Level of Alertness Alert Orientation Name,Age,Birthday,Month,Date, Year,Day of Week,Place, Situation Language Function Ability No Deficits Noted Safety Awareness Understands Safety Issues Memory Description No Deficits Noted Gross Range of Motion Upper Extremity ROM Assessment Within Functional Limits Lower Extremity ROM Assessment Within Functional Limits Strength Upper Extremity Strength Assessment Within Functional Limits Lower Extremity Strength Assessment Within Functional Limits M6 PT-IP Treatment Start: 08/24/19 08:30 Freq: NEEDED Status: Active Protocol: Document 08/25/19 11:00 HH (Rec: 08/25/19 12:45 [email or web address]) Physical Therapy Treatment Exercises Exercises Ankle Pumps,Gluteal Sets,Quad Sets Education Education Provided Safety M7 PT-IP Assessment and Plan Start: 08/24/19 08:30 Freq: NEEDED Status: Active Protocol: Document 08/25/19 11:00 (Rec: 08/25/19 12:45 [email or web address]) PT Summary Assessment and Plan Potential Rehabilitation Potential Excellent Status of Condition at Evaluation Stable Summary Impairments Activity Tolerance Progress Towards Goals Safe For Discharge Assessment Summary This is a low complexity evaluation for this 78 yo male who was dx with COVID-19 d/t ongoing weakness, fever and coughing congestion since a week ago. BP at 125/79, temp 97.9F and RR = 14 upon assessment. Pt appears returned to PLOF without using AD/ gait belt for mobility. He demonstrated safe mobility and no signs of LOB. Pt is well aware of his PD and knows his therapy exercises related to his PD. At this point, pt is safe to be d/c back [facility]. Yanes also spoke with Pantera (pt's son) and that if [facility] is not able to accept pt back to the facility on Tuesday he and his will take him to their home on [address] [place]. Frequency of Treatment Frequency Of Treatment Discharge Recommendations To Nursing Amount of Assist Needed Standby Assistance Discharge Recommendations PT Discharge Recommendations Home with Assistance Transportation Needs at Discharge Private Vehicle
--- NOTE | 2019-08-25 13:55 | PC.NURSE ---
Assess- Patient is alert and oriented x3, but he can be forgetful.... He has urgency and gets up by himself to use the urinal or the bathroom. We are gowning up with PPE before going into patients room. He is steady on his feet, and has been calling appropriately when he needs to stand to use the urinal. BS wnl and 92% on RA. Patient sleeping now and comfortable.
[2019-08-25] MEDS: HYDROCODONE/ACET 5/325 TABLET 1 TAB PO (20:30)
[2019-08-26 01:40] VITALS: BP 143/76; PULSE 68; RESP 16; TEMP 36.9; O2SAT 93
[2019-08-26 04:55] VITALS: BP 141/105; PULSE 77; RESP 20; TEMP 37.2; O2SAT 94
[2019-08-26] MEDS: CARBIDOPA-LEVODOPA 25/100 TABLET 1 EACH PO ×2 (05:03→10:09)
[2019-08-26] MEDS: HYDROCODONE/ACET 5/325 TABLET 1 TAB PO (05:04)
[2019-08-26 08:00] VITALS: BP 149/74; PULSE 68; RESP 20; TEMP 36.2; O2SAT 96
--- NOTE | 2019-08-26 08:56 | PM.DS.1 ---
History of Present Illness History of Present Illness Chief complaint: Fever,Weakness,Cough Discharge Providers Provider Date of admission: 08/23/19 11:44 Discharge Date: 08/26/19 Primary care physician: Zain Cordova MD Consults: 08/23/19 12:09 Consult to Discharge Planning Routine Comment: Consult to Physical Therapy Evaluate & Treat Comment: Physician Instructions: Evaluate and Treat Discharge provider: Manda Yanes DO Exam Vital Signs (past 8 hours): - 08/26/19 01:40 08/26/19 04:55 08/26/19 08:00 Temperature 98.4 F 98.9 F 97.2 F L Pulse Rate 68 77 68 Respiratory Rate 16 20 20 Blood Pressure 143/76 H 141/105 H 149/74 H Pulse Oximetry 93 94 96 Oxygen Delivery Method Room Air Oxygen Flow Rate 0 Objective Labs Result Diagrams: 08/24/19 07:30 08/24/19 07:30 Labs: Laboratory Results - last 24 hr 08/24/19 07:20 Ferritin 558 H Discharge Plan Discharge Plan Patient Disposition: Home Discharge comment: COVID-19 positive. Health department has discussed discharge precautions with family. https://www.cdc.gov/coronavirus/2019-nCoV/index.html Discharge orders & Medications Prescriptions: New hydrocodone-acetaminophen 5-325 mg Tablet 1 tab PO Q4HR PRN (Reason: Pain, Moderate (4-6)) Qty: 15 RF: 0 Continued carbidopa-levodopa 25-100 mg tablet 1 tab PO TID RF: 0 ASPIRIN (#ASPIR 81) 81 mg PO Q DAY Qty: 0 RF: 0 latanoprost [Xalatan] 0.005 % drops 1 drp OPHTH HS Qty: 0 RF: 0 ranibizumab [Lucentis] 0.5 MG/0.05 ML solution 0.5 mg IO Q 8 WEEKS Qty: 0 RF: 0 vitamins A,C,Z-wubp-hyxcpd [PreserVision AREDS] 1 EACH capsule 2 sgl PO Q DAY Qty: 0 RF: 0 Fish Oil (#OMEGA-3 FISH OIL) 3,600 mg PO Qty: 0 RF: 0 Lutein (#LUTEIN) 6 mg PO QDAY Qty: 0 RF: 0 cholecalciferol (vitamin D3) [Vitamin D3] 1,000 UNIT tablet 1,000 iu PO QDAY Qty: 0 RF: 0 Follow up/Referrals: Zain Cordova MD [Primary Care Provider] - 2 Weeks Diet/Activity/Treatments Diet: Diet as Tolerated Activity: Start Parkinsons exercises and do them daily. Skin/Wound/Dressing Care Report to your healthcare provider any signs of infection, such as:: chills, fever Discharge Data Primary Care Provider: Zain Cordova Quality VTE Deep Vein Thrombosis/Pulmonary Embolism Present on Admission: No
--- NOTE | 2019-08-26 09:00 | CM.DPC ---
DCP: continued: Dr. Yanes is here and has ok'd pt for d/c to his son's home to continue recovery from COVID-19. Will self quarantine in that home setting. Followed up by phone with Pantera after Dr. Yanes called him. He is now on his way here from [place]. Will stop at [facility] to pickling grader items for his father. Dr. Yanes has called in a medication to pt's pharmacy and he will pick this up. He will then be at hospital between noon and 1400. Conferred with CAL Lou, caring for pt today, to gather instructions for Pantera. She states she will meet Pantera outside of pt's room and go over the d/c instructions. She plans for pt to wear a mask and gloves when he leaves and he will be wheeled out to his son's car. Pantera is aware that the only entrance open today is at the ER and that he will be screened and then be allowed to come up to the acute care floor. Pantera states he is comfortable with this plan. He will then drive his father back to [place] with no stops until destination reached. Will follow prn until pt leaves.
[2019-08-26] MEDS: ENOXAPARIN 40 MG/0.4 ML SYRINGE SUBCUT (10:09)
--- NOTE | 2019-08-26 10:48 | PC.NURSE ---
Patient is going to discharge home in a bit. Lungs sounds are clear to auscultation. Patient does not have a temp, and he is up adlib in room. Son is here to take his dad home. He will be going to [facility] with his son.
--- NOTE | 2019-08-26 11:33 | P.DS_ITS ---
History of Present Illness History of Present Illness Date Patient Seen: 08/26/19 Time Patient Seen: 08:10 Chief complaint: Fever,Weakness,Cough Narrative: From 08/23/[address] Cordova 78-year-old male who lives at [facility] patient has a history consistent with Parkinson's disease. He lives fairly independently although he is no longer driving. Patient states last week he began to feel ill. He had some mild coughing congestion about a week ago. Did not have productive sputum or fevers or chills. Said that lasted for about 24-48 hours. And then began to feel little bit weak and tired had decreased appetite and decreased energy patient then on Tuesday had a low-grade temperature. A temperature is been on and off since Tuesday. He said at that time his cough went away but he still had the temperature weakness decreased appetite. He said it became more and more difficult for him to get up and walk. In addition to the weakness he began to have shoulder neck and back pain and discomfort. Says is mild to moderate intensity. He finds that it is uncomfortable with position changes or even just holding still. In addition to the low-grade fever he also feels at times that he has had shortness of breath in addition to the back and neck discomfort. Says he is not coughing now. He does not have headache or blurry vision he says he is hearing fine he is swallowing okay patient states he is not nauseated but not hungry. He is having no abdominal pain. He has had no difficulty with urination or change in his bowel movements. Says it is hard for him to walk because he is weak. His temperatures at home with been radiating anywhere he said between 99 and 101. In my office is temperature is 101?. He is mildly hypotensive he is weak and having a hard time standing on his own and needs support for movement. Other than being at [facility] he has had no other previous exposures risks such as travel or unanticipated guest as they have been on lock-down. Discharge Providers Provider Date of admission: 08/23/19 11:44 Discharge Date: 08/26/19 Primary care physician: Zain Cordova MD Consults: 08/23/19 12:09 Consult to Discharge Planning Routine Comment: Consult to Physical Therapy Evaluate & Treat Comment: Physician Instructions: Evaluate and Treat Discharge provider: Manda Yanes DO Summary Hospital Course Discharge Diagnosis: COVID-19 viral infection Hypotension Weakness Parkinsons Tremor Hospital Course: 78-year-old male with Parkinson's disease living at [facility] assisted living with fever weakness and decreased ability to ambulate. Found to be COVID-19 positive. His ferritin, AST, ALT were elevated. His fever resolved after the first night. He had normal oxygen saturation during his admission and did not require supplemental oxygen. He was treated for his dehydration with IV fluids and is normotensive on discharge. Patient is taking good oral intake although not significant amount of solid foods but he is doing okay with fluids. His home medications for Parkinson's disease were continued. He felt stiff and sore from lying in bed and was given hydrocodone which a small amount will be given for discharge. DVT prophylaxis was provided with lovenox. He was a no code. His son graciously made plans for patient to discharge home with him. He will be providing a separate room for patient while he continues to recover. COVID-19 precautions for the family were discussed and son had extensive conversation with the [facility] department. Status at Discharge Cognitive/behavioral status at discharge: oriented Functional status at discharge: independent ambulation Overall status at discharge: patient is progressing back to baseline Time Spent with Patient Time spent: Greater than 30 minutes Exam Vital Signs (past 8 hours): - 08/26/19 04:55 08/26/19 08:00 Temperature 98.9 F 97.2 F L Pulse Rate 77 68 Respiratory Rate 20 20 Blood Pressure 141/105 H 149/74 H Pulse Oximetry 94 96 Oxygen Delivery Method Room Air Oxygen Flow Rate 0 Narrative Exam Narrative: Gen.: Alert no apparent distress HEENT: Pupils equal round and reactive or mucosa is moist Cardio: S1-S2 regular rate and rhythm, 2/6 systolic murmur a left sternal border Respiratory: Clear Abdomen: Soft nontender no rebound or guarding Extremities: Full range of motion Neurologic: Patient has a tremor most noticeble in his hands. Objective Labs Result Diagrams: 08/24/19 07:30 08/24/19 07:30 Discharge Plan Discharge Plan Patient Disposition: Home Discharge comment: COVID-19 positive. Health department has discussed discharge precautions with family. https://www.cdc.gov/coronavirus/2019-nCoV/index.html Discharge orders & Medications Prescriptions: New hydrocodone-acetaminophen 5-325 mg Tablet 1 tab PO Q4HR PRN (Reason: Pain, Moderate (4-6)) Qty: 15 RF: 0 Continued carbidopa-levodopa 25-100 mg tablet 1 tab PO TID RF: 0 ASPIRIN (#ASPIR 81) 81 mg PO Q DAY Qty: 0 RF: 0 latanoprost [Xalatan] 0.005 % drops 1 drp OPHTH HS Qty: 0 RF: 0 ranibizumab [Lucentis] 0.5 MG/0.05 ML solution 0.5 mg IO Q 8 WEEKS Qty: 0 RF: 0 vitamins A,C,U-rffd-oercny [PreserVision AREDS] 1 EACH capsule 2 sgl PO Q DAY Qty: 0 RF: 0 Fish Oil (#OMEGA-3 FISH OIL) 3,600 mg PO Qty: 0 RF: 0 Lutein (#LUTEIN) 6 mg PO QDAY Qty: 0 RF: 0 cholecalciferol (vitamin D3) [Vitamin D3] 1,000 UNIT tablet 1,000 iu PO QDAY Qty: 0 RF: 0 Follow up/Referrals: Zain Cordova MD [Primary Care Provider] - 2 Weeks Diet/Activity/Treatments Diet: Diet as Tolerated Activity: Start Parkinsons exercises and do them daily. Skin/Wound/Dressing Care Report to your healthcare provider any signs of infection, such as:: chills, fever Visit Report/Discharge Packet Instructions: Hydrocodone Combination Products Discharge Data Primary Care Provider: Zain Cordova Discharges patient from system. Discharge Date/Time: 08/26/19 11:12 Quality VTE Deep Vein Thrombosis/Pulmonary Embolism Present on Admission: No
== END 2019-08-26 11:12 | disposition home or self-care (01) | DRG 195 ==
PROVIDERS: Family Medicine; Admitting Provider Family Medicine; PCP Family Medicine; Referring Provider Family Medicine; Visit Provider Family Medicine
DX: J12.89 Other viral pneumonia (principal); B97.29 Other coronavirus as the cause of diseases classified elsewhere; R53.1 Weakness; E86.0 Dehydration; G20 Parkinson's disease; I95.9 Hypotension, unspecified
CPT/HCPCS: 36415; 71045; 80053; 81001; 82550; 82553; 82728; 83605; 84145; 84484; 85025; 85610; 85730; 87633; 93005; 97161; 97530; 99223; 99232; 99233; 99239; 99356; J1650

== ENCOUNTER → 2019-12-07 11:32 | Outpatient (CLI) | payer MEDICARE, OTHER, SELFPAY ==
[2019-08-23 13:09] VITALS: BMI 26.3
[2019-12-07 22:27] LABS: COVID19 Sendout Not Detected (Not Detect)
== END ==
PROVIDERS: PCP Family Medicine; Visit Provider Nurse Practitioner
DX: Z11.59 Encounter for screening for other viral diseases (principal)
CPT/HCPCS: 87635

== ENCOUNTER 2020-10-14 04:55 | Emergency (ER) | payer MEDICARE, OTHER, SELFPAY ==
[2019-08-23 13:09] VITALS: BMI 26.3
--- NOTE | 2020-10-14 05:02 | ED.MALEGU ---
HPI - Male Genitourinary General Chief complaint: Urogenital-Male Stated complaint: Can't Pee Time Seen by Provider: 10/14/20 05:01 Source: patient and other (friend) Mode of arrival: Ambulatory Limitations: no limitations History of Present Illness HPI Narrative: 79-year-old male comes emergency department with complaint of difficulty urinating. Patient states throughout the evening he has had difficulty emptying his bladder and been peeing very small amounts. He states he had a very large bowel movement and was able to urinate more after this. He feels like he has had to urinate every 20 minutes although it has been about an hour since the last urination any does not feel quite as much sense of urgency. He states he is not painful but is uncomfortable, he denies any dysuria, he has not had any incontinence but is having hesitancy and sense of urgency. Patient denies any fevers or chills. No nausea or vomiting. No chest pain or shortness of breath. He denies any abdominal pain other than some suprapubic discomfort. He denies any back or flank pain. Patient states his bowel movement was soft, he has had several smaller movements prior to this. He did have a prior episode similar to this about 20-30 years ago and states that he had a Mcpherson catheter placed for several days, followed up with urology was on some medication for an infection symptoms resolved and he has never had issues since. He does have a history of Parkinson's and is on carbidopa/levodopa. He denies any tobacco, alcohol or illicit. Related Data Home Medications Medication Instructions Recorded Confirmed Fish Oil (#OMEGA-3 FISH OIL) 3,600 mg PO #0 07/08/11 01/02/20 Lutein (#LUTEIN) 6 mg PO QDAY #0 07/08/11 01/02/20 cholecalciferol (vitamin D3) 1,000 iu PO QDAY #0 07/08/11 01/02/20 [Vitamin D3] latanoprost [Xalatan] 1 drp OPHTH HS #0 07/08/11 01/02/20 ranibizumab [Lucentis] 0.5 mg IO Q 8 WEEKS #0 07/08/11 01/02/20 vitamins A,C,H-vtny-uqekur 2 sgl PO Q DAY #0 07/08/11 01/02/20 [PreserVision AREDS] carbidopa 25 mg-levodopa 100 mg 1 tab PO TID 10/11/18 01/02/20 tablet Previous Rx's Medication Instructions Recorded docusate sodium [Colace] 100 mg PO BID PRN #20 cap 10/14/20 levofloxacin 500 mg PO DAILY 10 Days #10 tab 10/14/20 Allergies Allergy/AdvReac Type Severity Reaction Status Date / Time dexamethasone [From MAXITROL] Allergy Unknown unk Verified 01/02/20 10:35 neomycin [From MAXITROL] Allergy Unknown unk Verified 01/02/20 10:35 polymyxin B [From MAXITROL] Allergy Unknown unk Verified 01/02/20 10:35 polmycin Allergy Unknown unk Uncoded 01/02/20 10:35 triamethophin Allergy Unknown unk Uncoded 01/02/20 10:35 Review of Systems Review of Systems ROS Unobtainable: All systems reviewed & are unremarkable except as noted in HPI and below Patient History Surgical History History of cataract removal with insertion of prosthetic lens Status post arthroscopy Social History marital status: details: around 2011 household members: none lives independently: Yes housing: assisted living facility Smoking Status: Never smoker alcohol intake: current substance use type: does not use Smoking Status: Never smoker Substance Use Type: does not use Exam Narrative Exam Narrative: GENERAL: Alert and oriented x three, well-appearing elderly male in mild distress. HEENT: Head normocephalic, atraumatic, EOMI, pupils reactive, face symmetric, moist mucous membranes NECK: Supple, full range of motion CARDIOVASCULAR: Regular rate and rhythm without murmurs, rubs or gallops. RESPIRATORY: Breath sounds equal bilaterally, no wheezes rales or rhonchi. ABDOMEN: Soft, nontender. Normoactive bowel sounds all 4 quadrants. No guarding or rebound, rigidity, no mass. : No CVA tenderness EXTREMITIES: Normal range of motion, no clubbing or edema. Neurovascularly intact NEUROLOGICAL: Cranial nerves II through XII grossly intact. Moving all extremities. Patient does have mild tremor most notable in the right upper extremity. SKIN: Warm, dry, no petechiae, no rashes or lesions. Initial Vital Signs Initial Vital Signs: Vital Signs Temperature 97.7 F 10/14/20 05:08 Pulse Rate 78 10/14/20 05:08 Respiratory Rate 20 10/14/20 05:08 Blood Pressure 190/97 H 10/14/20 05:08 Pulse Oximetry 97 10/14/20 05:08 Course Orders Ordered: ED Orders 10/14/20 05:11 XR abdomen min 2V Stat 10/14/20 05:23 Urine Microscopic Stat Discontinued Medications Levofloxacin (Levofloxacin 250 Mg Tablet) 500 mg PO NOW ONE Stop: 10/14/20 06:00 Last Admin: 10/14/20 06:04 Dose: 500 mg Documented by: REBEKAH Vital Signs Vital signs: Vital Signs - 8 hr 10/14/20 05:08 Temperature 97.7 F Pulse Rate 78 Respiratory Rate 20 Blood Pressure 190/97 H Pulse Oximetry 97 MDM - Male Genitourinary Lab Data Attestation: I reviewed the patient's lab results. Labs: Urine Dip Bedside Urine Glucose Negative Bedside Urine Bilirubin - Negative Bedside Urine Ketone - Negative Urine Specific [place] 1.025 Bedside Urine Occult Blood - Negative Bedside Urine pH 6.0 Bedside Urine Protein - Negative Bedside Urine Urobilinogen +/- 1mg Bedside Urine Nitrite - Negative Bedside Urine Leukocytes +/- 15 Esterase Imaging Data Abdominal x-ray: Radiologist's Impression: Moderate constipation. No bowel obstruction. No free intraperitoneal here. Psoas shadows a properitoneal flank visualized. Vascular calcification in the pelvis. Mild dextrocurvature. No suspicious bony lesions. Visualized lower lung zones are clear. [facility] Narrative Medical decision making narrative: This is a pleasant 79-year-old male who has had difficulty with urination for with frequency and a sense of incomplete emptying although a bladder scan he only has 100mL present. Patient did have a large bowel movement earlier this morning which did seem to help him empty his bladder a little bit easier. His x-ray imaging it is consistent with some constipation which may be worsening some of his urinary symptoms but his point of care urine is also suspicious for infection with positive leukocyte esterase. Urine was sent for culture. Plan to start patient on oral antibiotic as well as medications to help with making sure he is having soft and regular stools to facilitate easy urination. Discharge Plan Departure Patient Disposition: Home Clinical Impression: Acute UTI Instructions: DI for Urinary Tract Infection (UTI) Activity Restrictions/Additional Instructions: Follow up with your physician in the next 2-3 days for recheck if you are not having significant improvement in your symptoms. Take antibiotics until completely gone. Prescription sent [facility] in [place]. Your imaging does show changes that are suspicious for constipation and this can worsen any urinary retention. I would recommend taking a stool softener such as colace 1-2 times daily until stools are soft and regular. Please return if you are having new abdominal or pelvic pain, back or flank pain, fevers greater 100.4 F, if you feel you are not emptying your bladder, if you are unable to urinate, have black or bloody stools or other new or concerning symptoms. Prescriptions: New levofloxacin 500 mg tablet 500 mg PO DAILY 10 Days Qty: 10 RF: 0 docusate sodium [Colace] 100 mg capsule 100 mg PO BID PRN (Reason: constipation) Qty: 20 RF: 0 No Action carbidopa-levodopa 25-100 mg tablet 1 tab PO TID RF: 0 latanoprost [Xalatan] 0.005 % drops 1 drp OPHTH HS Qty: 0 RF: 0 ranibizumab [Lucentis] 0.5 MG/0.05 ML solution 0.5 mg IO Q 8 WEEKS Qty: 0 RF: 0 vitamins A,C,O-mspb-hqemlb [PreserVision AREDS] 1 EACH capsule 2 sgl PO Q DAY Qty: 0 RF: 0 Fish Oil (#OMEGA-3 FISH OIL) 3,600 mg PO Qty: 0 RF: 0 Lutein (#LUTEIN) 6 mg PO QDAY Qty: 0 RF: 0 cholecalciferol (vitamin D3) [Vitamin D3] 1,000 UNIT tablet 1,000 iu PO QDAY Qty: 0 RF: 0 Referrals: Zain Cordova MD [Primary Care Provider] -
[2020-10-14 05:08] VITALS: BP 190/97; PULSE 78; RESP 20; TEMP 36.5; O2SAT 97; BMI 23.6
--- NOTE | 2020-10-14 05:11 | DI.RAD.S_ITS ---
PROCEDURE: XR ABDOMEN MIN 2V INDICATIONS: difficulty urinating, constipation TECHNIQUE: 2 views of the abdomen were acquired. COMPARISON: None. FINDINGS: Surgical changes and devices: None. Bowel: No pneumoperitoneum. The bowel gas pattern is normal. Moderate amount of stool noted throughout the colon. Soft tissues: No masses; visualized solid organ contours appear normal in size. No suspicious abdominal calcifications. Bones: No suspicious bony abnormalities. IMPRESSION: Moderate colonic fecal loading compatible with reported constipation. Dictated by: Lizz Dumont MD, PhD on 10/14/2020 at 8:57 Approved by: Lizz Dumont MD, PhD on 10/14/2020 at 8:57
[2020-10-14] MEDS: levoFLOXacin 250 MG TABLET 500 MG PO (06:04)
[2020-10-14 06:48] LABS: RBC Urine 0-1/HPF (0-5/HPF); WBC Urine 30-100/HPF (0-5/HPF)
[2020-10-14 06:49] LABS: Bacteria Urine Many (>30); Culture Indicated Urine Specimen Cultured
== END 2020-10-14 06:11 | disposition home or self-care (01) ==
PROVIDERS: Emergency Provider Emergency Medicine; PCP Family Medicine
DX: N39.0 Urinary tract infection, site not specified (principal)
CPT/HCPCS: 51798; 74019; 81003; 81015; 87077; 87086; 87185; 87186; 99283

== ENCOUNTER → 2020-10-24 07:34 | Outpatient (CLI) | payer MEDICARE, OTHER, SELFPAY ==
[2019-08-23 13:09] VITALS: BMI 26.3
[2020-10-24 07:40] LABS: Bacteria Urine None Seen; RBC Urine None Seen (0-5/HPF)
[2020-10-24 08:26] LABS: Appearance Urine UA CLEAR; Bilirubin Urine UA NEGATIVE (NEGATIVE); Color Urine UA YELLOW; Glucose Urine UA NEGATIVE (Negative); Ketones Urine UA NEGATIVE (NEGATIVE); Leukocyte Esterase Urine UA NEGATIVE (NEGATIVE); Nitrite Urine UA NEGATIVE (Negative); Occult Blood Urine UA NEGATIVE (Negative); Protein Urine UA NEGATIVE (Negative); Specific Gravity Urine UA 1.025 (1.000-1.035); Urobilinogen Urine UA 0.2 E.U./dL (0.2)
[2020-10-24 08:54] LABS: Amorphous Sediment Urine 1+; Culture Indicated Urine Cult Not Indicated; Mucus Urine 2+ (Negative); WBC Urine 0-1/HPF (0-5/HPF)
== END ==
PROVIDERS: PCP Family Medicine; Referring Provider Family Medicine; Visit Provider Family Medicine
DX: N39.0 Urinary tract infection, site not specified (principal)
CPT/HCPCS: 81001

== ENCOUNTER → 2021-01-20 07:14 | Outpatient (CLI) | payer MEDICARE, OTHER, SELFPAY ==
[2019-08-23 13:09] VITALS: BMI 26.3
[2021-01-20 09:22] LABS: Albumin 4.3 g/dL (3.5-5.0); Albumin Globulin Ratio 1.6 (1.0-2.8); Alkaline Phosphatase 77 U/L (38-126); Aspartate Aminotransferase 29 IU/L (17-59); BUN Creatinine Ratio 23.7 (6-22); Bilirubin Total 0.8 mg/dL (0.2-1.3); Blood Urea Nitrogen 23 mg/dL (9-20); Calcium 9.8 mg/dL (8.4-10.2); Carbon Dioxide 27 mmol/L (22-32); Chloride 107 mmol/L (98-107); Estimated Glomerular Filt Rate > 60.0 mL/min (>60); Globulin 2.7 g/dL (1.7-4.1); Glucose 107 mg/dL (80-110); HEMOLYSIS < 15 (0-50); Potassium 4.9 mmol/L (3.4-5.1); Sodium 139 mmol/L (137-145)
[2021-01-20 09:23] LABS: Alanine Aminotransferase < 4 IU/L (<50)
[2021-01-20 09:33] LABS: Add Manual Diff / Slide Review NO; Basophils Absolute Auto 0 /uL (0-100); Basophils Percent Auto 0.2 % (0-2); Eosinophils Absolute Auto 100 /uL (0-450); Eosinophils Percent Auto 1.2 % (2-4); Hematocrit 45.3 % (41-53); Hemoglobin 15.3 g/dL (13.5-17.5); Lymphocytes Absolute Auto 1600 /uL (1100-4500); Lymphocytes Percent Auto 19.2 % (25-40); Mean Corpuscular HGB Conc 33.8 % (30-36); Mean Corpuscular Hemoglobin 29.9 PG (26-34); Mean Corpuscular Volume 88.3 fL (80-100); Monocytes Absolute Auto 500 /uL (0-900); Monocytes Percent Auto 6.2 % (3-14); Neutrophils Absolute Auto 6000 /uL (1500-7000); Neutrophils Percent Auto 73.2 % (50-75); Platelet Count 212 X10^3/uL (150-400); Red Blood Cell Count 5.13 X10^6/uL (4.5-5.9); Red Cell Distribution Width 14.7 % (11.6-14.8); White Blood Cell Count 8.2 X10^3/uL (4.5-11.0)
[2021-01-20 09:57] LABS: TSH w/ Reflex to FT4 3.34 uIU/mL (0.47-4.68)
== END ==
PROVIDERS: PCP Family Medicine; Referring Provider Family Medicine; Visit Provider Family Medicine
DX: E78.5 Hyperlipidemia, unspecified (principal); G20 Parkinson's disease; I10 Essential (primary) hypertension; R19.7 Diarrhea, unspecified
CPT/HCPCS: 36415; 80053; 84443; 85025

== ENCOUNTER 2021-02-19 18:13 | Emergency (ER) | payer MEDICARE, OTHER, SELFPAY ==
[2019-08-23 13:09] VITALS: BMI 26.3
[2021-02-19 18:19] VITALS: BP 133/84; PULSE 88; RESP 14; TEMP 36.6; O2SAT 98; BMI 24.0
[2021-02-19 19:26] LABS: Appearance Urine UA SL CLOUDY; Bilirubin Urine UA NEGATIVE (NEGATIVE); Color Urine UA RED; Glucose Urine UA NEGATIVE (Negative); Ketones Urine UA NEGATIVE (NEGATIVE); Leukocyte Esterase Urine UA NEGATIVE (NEGATIVE); Nitrite Urine UA NEGATIVE (Negative); Occult Blood Urine UA 3+ (Negative); Protein Urine UA NEGATIVE (Negative); Specific Gravity Urine UA 1.015 (1.000-1.035); Urobilinogen Urine UA 0.2 E.U./dL (0.2); pH Urine UA 5.5 (4.5-8.0)
[2021-02-19 19:28] LABS: RBC Urine >100/HPF (0-5/HPF); WBC Urine 0-1/HPF (0-5/HPF)
[2021-02-19 19:29] LABS: Bacteria Urine None Seen; Culture Indicated Urine Cult Not Indicated
--- NOTE | 2021-02-19 20:02 | ED.MALEGU ---
HPI - Male Genitourinary General Chief complaint: Urogenital-Male Stated complaint: Urinating Blood Time Seen by Provider: 02/19/21 18:28 Source: patient Mode of arrival: Ambulatory History of Present Illness HPI Narrative: 80-year-old male nonsmoker with history of Parkinson's, hypertension and macular degeneration presents with his in the chief complaint of brief and mild painless hematuria earlier today. He denies dysuria, frequency or urgency. He did pass a small number of clots in his urine in the absence of pain, fever or chills. He denies any abdominal pain, takes no blood thinners. Related Data Home Medications Medication Instructions Recorded Confirmed Fish Oil (#OMEGA-3 FISH OIL) 3,600 mg PO #0 07/08/11 01/29/21 Lutein (#LUTEIN) 6 mg PO QDAY #0 07/08/11 01/29/21 cholecalciferol (vitamin D3) 25 1,000 iu PO QDAY #0 07/08/11 01/29/21 mcg (1,000 unit) tablet (Vitamin D3) latanoprost 0.005 % eye drops 1 drp OPHTH HS #0 07/08/11 01/29/21 (Xalatan) ranibizumab 0.5 mg/0.05 mL 0.5 mg IO Q 8 WEEKS #0 07/08/11 01/29/21 intravitreal solution for injection (Lucentis) vitamins A,C,W-kmcl-vfkomp 14,320 2 sgl PO Q DAY #0 07/08/11 01/29/21 unit-226 mg-200 unit capsule (PreserVision AREDS) carbidopa 25 mg-levodopa 100 mg 2 tab PO TID tab 01/29/21 01/29/21 tablet Previous Rx's Medication Instructions Recorded docusate sodium 100 mg capsule 100 mg PO BID PRN #60 cap 10/28/20 (Colace) Allergies Allergy/AdvReac Type Severity Reaction Status Date / Time dexamethasone [From MAXITROL] Allergy Unknown unk Verified 02/19/21 18:20 neomycin [From MAXITROL] Allergy Unknown unk Verified 02/19/21 18:20 polymyxin B [From MAXITROL] Allergy Unknown unk Verified 02/19/21 18:20 polmycin Allergy Unknown unk Uncoded 02/19/21 18:20 triamethophin Allergy Unknown unk Uncoded 02/19/21 18:20 Review of Systems Review of Systems Narrative: GENERAL: Denies chills, fatigue, malaise, fever, sweats. HEENT: Denies sinus pain, ear pain, sore throat, difficulty swallowing, dizziness. RESPIRATORY: Denies dyspnea, cough, wheezing, hemoptysis, sputum. CARDIOVASCULAR: Denies chest pain, palpitations, orthopnea, edema, GASTROINTESTINAL: Denies nausea, vomiting, abdominal pain, diarrhea, constipation, melena. : See HPI MUSCULOSKELETAL: denies weakness, joint pain, or bony pain SKIN: Denies rash, skin lesions, or other NEUROLOGIC: Denies weakness, headache, numbness, change in speech, confusion, seizures, incoordination. PSYCHIATRIC: No concerning psychosocial issues. 12 point review of systems is negative except for those stated above Patient History Surgical History History of cataract removal with insertion of prosthetic lens Status post arthroscopy Social History marital status: details: around 2011 household members: none lives independently: Yes housing: assisted living facility Smoking Status: Never smoker alcohol intake: current substance use type: does not use Smoking Status: Never smoker Substance Use Type: does not use Exam Narrative Exam Narrative: GEN: AOx3 and in mild distress EYES: Pupils are equal, round, and reactive to light and accommodation. Extraoccular muscles are intact bilaterally. There is no subconjunctival hemorrhage or exudate. CHEST: Lungs are clear to auscultation bilaterally and free of wheezes, rales, or rhonchi. Heart rate is regular rhythm, there are no murmurs, clicks, rubs, or gallops. There is no chest wall tenderness. ABD: Abdomen is soft and nontender. There is no guarding or rebound. Bowel sounds are normal in all 4 quadrants. There is no mass or organomegaly. EXT: Full painless ROM of all extremities with no loss of sensation or strength. SKIN: Warm, pink, and dry. No erythema or rash Initial Vital Signs Initial Vital Signs: Vital Signs Temperature 97.9 F 02/19/21 18:19 Pulse Rate 88 02/19/21 18:19 Respiratory Rate 14 02/19/21 18:19 Blood Pressure 133/84 02/19/21 18:19 Pulse Oximetry 98 02/19/21 18:19 Course Orders Ordered: ED Orders 02/19/21 19:02 Urinalysis and Microscopic Stat Reevaluation(s) Reevaluation #1: Patient urinated a 2nd time, no blood was noted. Vital Signs Vital signs: Vital Signs - 8 hr 02/19/21 21:03 Pulse Rate 65 Blood Pressure 166/79 H Pulse Oximetry 95 MDM - Male Genitourinary Lab Data Labs: Lab Results 02/19/21 Range/Units 19:02 Urine Color Red Urine Appearance Sl cloudy Urine pH 5.5 (4.5-8.0) Ur Specific [place] 1.015 (1.000-1.035) Urine Protein Negative (Negative) Urine Glucose (UA) Negative (Negative) g/dL Urine Ketones Negative (NEGATIVE) Urine Occult Blood 3+ H (Negative) Urine Nitrate Negative (Negative) Urine Bilirubin Negative (NEGATIVE) Urine Urobilinogen 0.2 (0.2) E.U./dL Ur Leukocyte Esterase Negative (NEGATIVE) Urine RBC >100/hpf H (0-5/HPF) Urine WBC 0-1/hpf (0-5/HPF) Urine Bacteria None seen (None) Ur Culture Indicated? Cult not indicated MDM Narrative Medical decision making narrative: Patient has reassuring physical exam and history. He has no symptoms such as fever, chills nor pain. He has no dysuria, frequency or urgency. During his visit his urine has cleared. He denies any recent injury or trauma. He takes no blood thinners. The cause of his hematuria is unclear at this point time but we discussed the most appropriate workup here versus with his primary care provider and sure the opinion that he is appropriate for discharge and close follow-up. He has been given return precautions and questions have been answered to his apparent satisfaction Discharge Plan Departure Patient Disposition: Home Clinical Impression: Hematuria Qualifiers: Hematuria type: unspecified type Qualified Code(s): R31.9 - Hematuria, unspecified Instructions: DI for Hematuria Activity Restrictions/Additional Instructions: *You have been diagnosed with [painless hematuria. You have a very reassuring physical exam and no evidence of infection *What to do: *Please continue to take your regular medications as directed. [ ] New medication prescriptions sent to your pharmacy: [ ] [ ] New medication written as a paper prescription [x ] No new medications given *Please follow up with your primary care provider in 2-3 days, call for an appointment. Let them know you were seen in the Emergency Department and that we ask that you be seen in follow up. We will electronically transmit a record of today's note if your PCP is in our system *If you do not have a primary care provider please contact the [facility] Resource line at [phone]. They will ask some questions about your medical history and help get you set up with a doctor in the community. *Return to Emergency Department if you should have any new, worsening or concerning symptoms, such as [fever greater than 101 F, shaking chills, worsening pain, persistent vomiting or other bothersome symptoms] I have included contact information for our Urology group, it would be reasonable to contact them for follow-up as well. Depending on your insurance and may be needed to get an official referral from Dr. Cordova Prescriptions: No Action docusate sodium [Colace] 100 mg capsule 100 mg PO BID PRN (Reason: constipation) Qty: 60 RF: 3 carbidopa-levodopa 25-100 mg tablet 2 tab PO TID RF: 0 latanoprost [Xalatan] 0.005 % drops 1 drp OPHTH HS Qty: 0 RF: 0 ranibizumab [Lucentis] 0.5 MG/0.05 ML solution 0.5 mg IO Q 8 WEEKS Qty: 0 RF: 0 vitamins A,C,H-prtg-pwrief [PreserVision AREDS] 1 EACH capsule 2 sgl PO Q DAY Qty: 0 RF: 0 Fish Oil (#OMEGA-3 FISH OIL) 3,600 mg PO Qty: 0 RF: 0 Lutein (#LUTEIN) 6 mg PO QDAY Qty: 0 RF: 0 cholecalciferol (vitamin D3) [Vitamin D3] 1,000 UNIT tablet 1,000 iu PO QDAY Qty: 0 RF: 0 Referrals: Zain Cordova MD [Primary Care Provider] - Karthik Cox MD [Physician] -
[2021-02-19 21:03] VITALS: BP 166/79; PULSE 65; O2SAT 95
== END 2021-02-19 21:04 | disposition home or self-care (01) ==
PROVIDERS: Emergency Provider Emergency Medicine; PCP Family Medicine
DX: R31.9 Hematuria, unspecified (principal)
CPT/HCPCS: 81001; 99281; 99282

== ENCOUNTER → 2022-02-09 07:23 | Outpatient (CLI) | payer MEDICARE, OTHER, SELFPAY ==
[2019-08-23 13:09] VITALS: BMI 26.3
[2022-02-09 08:22] LABS: Add Manual Diff / Slide Review NO; Basophils Absolute Auto 0 /uL (0-100); Basophils Percent Auto 0.2 % (0-2); Eosinophils Absolute Auto 200 /uL (0-450); Eosinophils Percent Auto 2.1 % (2-4); Hemoglobin 14.8 g/dL (13.5-17.5); Lymphocytes Absolute Auto 2000 /uL (1100-4500); Lymphocytes Percent Auto 27.2 % (25-40); Mean Corpuscular HGB Conc 32.8 % (30-36); Mean Corpuscular Hemoglobin 29.1 PG (26-34); Mean Corpuscular Volume 88.5 fL (80-100); Monocytes Absolute Auto 500 /uL (0-900); Monocytes Percent Auto 6.6 % (3-14); Neutrophils Absolute Auto 4600 /uL (1500-7000); Neutrophils Percent Auto 63.9 % (50-75); Platelet Count 209 X10^3/uL (150-400); Red Blood Cell Count 5.08 X10^6/uL (4.5-5.9); Red Cell Distribution Width 14.4 % (11.6-14.8); White Blood Cell Count 7.2 X10^3/uL (4.5-11.0)
[2022-02-09 08:45] LABS: Alanine Aminotransferase 5 IU/L (<50); Albumin Globulin Ratio 1.3 (1.0-2.8); Alkaline Phosphatase 72 U/L (38-126); Aspartate Aminotransferase 28 IU/L (17-59); Bilirubin Total 0.6 mg/dL (0.2-1.3); Blood Urea Nitrogen 25 mg/dL (9-20); Calcium 8.9 mg/dL (8.4-10.2); Carbon Dioxide 28 mmol/L (22-32); Chloride 107 mmol/L (98-107); Cholesterol 196 mg/dL (140-199); Estimated Glomerular Filt Rate > 60 mL/min (>60); Glucose 107 mg/dL (80-110); HDL Cholesterol 44 mg/dL (40-60); HEMOLYSIS < 15 (0-50); LDL Cholesterol Calculated 135 mg/dL (<100); Sodium 139 mmol/L (137-145); Triglycerides 87 mg/dL (35-150)
[2022-02-09 09:15] LABS: TSH w/ Reflex to FT4 2.79 uIU/mL (0.47-4.68)
== END ==
PROVIDERS: PCP Family Medicine; Referring Provider Physician Assistant; Visit Provider Physician Assistant
DX: E78.5 Hyperlipidemia, unspecified (principal); G20 Parkinson's disease; I10 Essential (primary) hypertension
CPT/HCPCS: 36415; 80053; 80061; 84443; 85025

== ENCOUNTER → 2023-03-07 08:31 | Outpatient (CLI) | payer MEDICARE, OTHER, SELFPAY ==
[2019-08-23 13:09] VITALS: BMI 26.3
[2023-03-07 09:51] LABS: Hematocrit 46.1 % (41-53); Hemoglobin 15.7 g/dL (13.5-17.5); Mean Corpuscular HGB Conc 34.1 % (30-36); Mean Corpuscular Hemoglobin 29.9 PG (26-34); Mean Corpuscular Volume 87.7 fL (80-100); Platelet Count 205 X10^3/uL (150-400); Red Blood Cell Count 5.26 X10^6/uL (4.5-5.9); Red Cell Distribution Width 14.3 % (11.6-14.8); White Blood Cell Count 11.8 X10^3/uL (4.5-11.0)
[2023-03-07 10:18] LABS: Alanine Aminotransferase 8 IU/L (<50); Albumin 4.2 g/dL (3.5-5.0); Albumin Globulin Ratio 1.4 (1.0-2.8); Alkaline Phosphatase 87 U/L (38-126); Aspartate Aminotransferase 27 IU/L (17-59); BUN Creatinine Ratio 27.6 (6-22); Bilirubin Total 0.9 mg/dL (0.2-1.3); Blood Urea Nitrogen 29 mg/dL (9-20); Calcium 9.6 mg/dL (8.4-10.2); Carbon Dioxide 25 mmol/L (22-32); Chloride 104 mmol/L (98-107); Cholesterol 228 mg/dL (140-199); Estimated Glomerular Filt Rate > 60 mL/min (>60); Glucose 104 mg/dL (80-110); HDL Cholesterol 47 mg/dL (40-60); HEMOLYSIS < 15 (0-50); LDL Cholesterol Calculated 156 mg/dL (<100); Potassium 3.8 mmol/L (3.4-5.1); Sodium 139 mmol/L (137-145); Total Protein 7.2 g/dL (6.3-8.2); Triglycerides 123 mg/dL (35-150)
[2023-03-07 10:47] LABS: TSH w/ Reflex to FT4 3.26 uIU/mL (0.47-4.68)
[2023-03-07 17:16] LABS: Neutrophils Absolute Manual 7788 /uL (3000-5900); RBC Morphology Normal Morphology; Total Cells Counted 100
== END ==
PROVIDERS: PCP Family Medicine; Referring Provider Family Medicine; Visit Provider Family Medicine
DX: E78.5 Hyperlipidemia, unspecified (principal); H35.30 Unspecified macular degeneration; I10 Essential (primary) hypertension; G20.A1 Parkinson's disease without dyskinesia, without mention of fluctuations
CPT/HCPCS: 36415; 80053; 80061; 84443; 85025

== ENCOUNTER 2024-03-15 07:17 | Emergency (ER) | payer MEDICARE, OTHER, SELFPAY ==
[2019-08-23 13:09] VITALS: BMI 26.3
--- NOTE | 2024-03-15 07:29 | ED.LOWEXIN ---
HPI - Extremity Injury (Lower) General Chief Complaint: Extremity Problem,Nontraumatic Stated Complaint: r leg pain/problems Time Seen by Provider: 03/15/24 07:25 History of Present Illness HPI Narrative: 83-year-old male with history of parkinsonism has 2-3 days duration atraumatic right hip pain, somewhat lateral and posterior, lives at [facility], no recent injury or new activities recalled. No prior hip injuries, surgeries, interventions. He does not have low back pain problems, does not have history known of sciatica, no prior lumbar surgeries or injections. He does not have any pain to his right ankle or foot. No right knee pain. No change in footwear. He has used a cane recent couple of days because of the discomfort in his right hip, otherwise usually ambulates independently. No history of bursitis recalled. No history of osteoarthritis or other forms of arthritis. Related Data Home Medications Medication Instructions Recorded Confirmed Fish Oil (#OMEGA-3 FISH OIL) 3,600 mg PO ##0 07/08/11 03/03/23 cholecalciferol (vitamin D3) 25 1,000 iu PO QDAY ##0 07/08/11 03/03/23 mcg (1,000 unit) tablet (Vitamin D3) latanoprost 0.005 % eye drops 1 drp OPHTH HS ##0 07/08/11 03/03/23 (Xalatan) ranibizumab 0.5 mg/0.05 mL 0.5 mg IO Q 8 WEEKS ##0 07/08/11 03/03/23 intravitreal solution for injection (Lucentis) vitamins A,C,V-wmyv-qqxeoc 4,296 2 sgl PO Q DAY ##0 07/08/11 03/03/23 mcg-226 mg-90 mg capsule (PreserVision AREDS) psyllium husk 3.4 gram/5.4 gram 1 tbsp PO DAILY 02/03/22 03/03/23 oral powder (Metamucil) carbidopa 25 mg-levodopa 100 mg 3 tab PO TID 03/12/24 03/12/24 tablet carbidopa ER 50 mg-levodopa 200 mg 1 tab PO BEDTIME 03/12/24 03/12/24 tablet,extended release Previous Rx's Medication Instructions Recorded Slippery Elm Bark 1 ea PO .QDAY PRN constipation #10 02/03/22 ea Allergies Allergy/AdvReac Type Severity Reaction Status Date / Time dexamethasone [From MAXITROL] Allergy Unknown unk Verified 03/15/24 07:38 neomycin [From MAXITROL] Allergy Unknown unk Verified 03/15/24 07:38 polymyxin B [From MAXITROL] Allergy Unknown unk Verified 03/15/24 07:38 polmycin Allergy Unknown unk Uncoded 03/15/24 07:38 triamethophin Allergy Unknown unk Uncoded 03/15/24 07:38 Review of Systems Review of Systems Narrative: see HPI Patient History Surgical History Status post arthroscopy History of cataract removal with insertion of prosthetic lens Social History marital status: details: around 2011 number of children: 2 household members: none lives independently: Yes housing: assisted living facility Smoking Status: Never smoker alcohol intake: current substance use type: does not use Smoking Status: Never smoker Substance Use Type: does not use Exam Narrative Exam Narrative: GENERAL: Well-developed patient, in mild distress. HEAD: Atraumatic. Normocephalic. EYES: Pupils equal round and reactive. Extraocular motions intact. No scleral icterus. No injection or drainage. ENT: Nose without bleeding, purulent drainage. Throat without erythema, tonsillar hypertrophy or exudate. Airway patent. NECK: Trachea midline. Non tender CARDIOVASCULAR: Regular rate and rhythm without murmurs, gallops, or rubs. RESPIRATORY: Clear to auscultation. Breath sounds equal bilaterally. No wheezes, rales, or rhonchi. GASTROINTESTINAL: Abdomen soft, non-tender, nondistended. EXTREMITIES: No edema or joint tenderness. Some mild tenderness to right lateral trochanter region, no limb length deformity, able to flex and extend at his hip, no gross deformity of the thigh. No tenderness along the right sciatic groove. BACK: Nontender without deformity or crepitance. No flank tenderness. No lumbar midline or paraspinous tenderness, no SI joint area discomfort. No skin rash changes/vesicles. NEURO: AOx3. Motor functions grossly nonfocal SKIN: No rash or erythema of visible areas Initial Vital Signs Initial Vital Signs: Vital Signs Temperature 98.1 F 03/15/24 07:34 Pulse Rate 72 03/15/24 07:34 Respiratory Rate 16 03/15/24 07:34 Blood Pressure 108/62 03/15/24 07:34 Pulse Oximetry 96 03/15/24 07:34 Oxygen Delivery Method Room Air 03/15/24 07:34 Course Orders Ordered: ED Orders 03/15/24 07:32 XR femur RT min 2V Stat XR pelvis 1-2V Stat Discontinued Medications Acetaminophen (Acetaminophen 325 Mg Tablet) 650 mg PO NOW ONE Stop: 03/15/24 08:15 Last Admin: 03/15/24 08:23 Dose: 650 mg Documented By: AMBROSE Vital Signs Vital signs: Vital Signs - 8 hr 03/15/24 07:34 03/15/24 08:57 03/15/24 08:58 Temperature 98.1 F Pulse Rate 72 60 61 Respiratory Rate 16 Blood Pressure 108/62 Pulse Oximetry 96 94 94 Oxygen Delivery Method Room Air 03/15/24 08:58 Temperature Pulse Rate Respiratory Rate Blood Pressure 130/69 Pulse Oximetry Oxygen Delivery Method MDM - Extremity Injury (Lower) Imaging Data Extremity x-ray #1: Radiologist's Impression: [address] [address] XRay Report Signed Patient: Kleber Pan MR#: [id number] : 1940 Acct:[id number] Age/Sex: 83 / M Date of Service: 03/15/24 Loc: ED Accession Number: [id number] Procedure: XR femur RT min 2V Ordering Provider: Sher Camacho MD PROCEDURE: XR FEMUR RT MIN 2V INDICATIONS: right hip and thigh pain, no trauma TECHNIQUE: 2 views of the femur were acquired. COMPARISON: None. FINDINGS: Bones: No fractures or dislocations. No suspicious bony lesions. Soft tissues: No suspicious soft tissue calcifications or masses. IMPRESSION: No acute bony abnormality. Dictated by: Yair Howard M.D. on 03/15/2024 at 8:44 Approved by: Yair Howard M.D. on 03/15/2024 at 8:44 Extremity x-ray #2: Radiologist's Impression: [address] [address] XRay Report Signed Patient: Kleber Pan MR#: [id number] : 1940 Acct:[id number] Age/Sex: 83 / M Date of Service: 03/15/24 Loc: ED Accession Number: [id number] Procedure: XR pelvis 1-2V Ordering Provider: Sher Camacho MD PROCEDURE: XR PELVIS 1-2V INDICATIONS: hip pain TECHNIQUE: 1 view(s) of the pelvis acquired. COMPARISON: None. FINDINGS: Bones: No fractures or dislocations. No suspicious bony lesions. Nonuniform joint space narrowing and osteophytic lipping of the acetabuli. Soft tissues: Visualized bowel gas pattern is normal. No suspicious soft tissue calcifications. IMPRESSION: Mild bilateral hip osteoarthritis. Dictated by: Yair Howard M.D. on 03/15/2024 at 8:44 Approved by: Yair Howard M.D. on 03/15/2024 at 8:45 MDM Narrative Medical decision making narrative: 83-year-old male with history of Parkinson's, has 2-3 days duration atraumatic right hip pain, not responsive to Motrin thus far. No other treatments tried. No obvious fall on in injury or new activities. Afebrile, sirs screen negative. Physical examination without gross deformity, no skin changes, mild tenderness right trochanteric right posterior or so than anterior. No limb length discrepancy, can range his right hip. Doubt septic joint. Seems unlikely for fracture. Consider sciatica, no lumbar discomfort, no sciatic groove discomfort however. Consider soft tissue injury, osteoarthritis, bursitis, other. X-rays pelvis and right femur without abnormalities, osteoarthritis of both hips noted, see radiology reports. Oral dose Tylenol. Discharged home with family. Use kucm-[id number] Tylenol/Motrin for pain control for now. Osteoarthritis might be the cause of symptoms, though could have soft tissue or other process. No advanced imaging at this time. Trial of symptomatic medications for now. Follow up with PCP advised. Return precautions discussed. Discharged home with family Discharge Plan Departure Patient Disposition: Home Clinical Impression: Acute pain of right hip, Osteoarthritis Instructions: DI for Osteoarthritis Activity Restrictions/Additional Instructions: Right hip area discomfort without known trauma or new activities. Osteoarthritis on x-rays noted, as expected for age. X-rays without obvious dislocation or fracture. Unfortunately we can not see the soft tissue structures on plain radiographs, so it is possible that there could be some kind of injury to a muscle or ligament or tendon in that area causing discomfort that is not visible with this type of study. It is possible have a soft tissue problem such as a strain to 1 of the structures, or bursitis, that is not visible on plain x-ray visualization. If there is persistence of symptoms sometimes additional imaging is needed such as MRI of the hip joint to look at soft tissue structures. We did not think clinically that you have a hip joint infection. Consider use of Tylenol and or Motrin for pain control. Follow up with your regular provider in the next couple of days if not improving. Return earlier to this/nearest emergency department for any change worsening symptoms or any concerns prior Prescriptions: No Action carbidopa-levodopa 25-100 mg tablet 3 tab PO TID Metamucil 3.4 gram/5.4 gram powder 1 tbsp PO DAILY Rx Instructions: mix into at least 8 oz of water or juice before administering Slippery Elm Bark 1 ea PO .QDAY PRN (Reason: constipation) Qty: 10 0RF latanoprost [Xalatan] 0.005 % drops 1 drp OPHTH HS Qty: 0 ranibizumab [Lucentis] 0.5 MG/0.05 ML solution 0.5 mg IO Q 8 WEEKS Qty: 0 vitamins A,C,J-gluy-qdwbdu [PreserVision AREDS] 1 EACH capsule 2 sgl PO Q DAY Qty: 0 Fish Oil (#OMEGA-3 FISH OIL) 3,600 mg PO Qty: 0 cholecalciferol (vitamin D3) [Vitamin D3] 1,000 UNIT tablet 1,000 iu PO QDAY Qty: 0 carbidopa-levodopa 50-200 mg tablet extended release 1 tab PO BEDTIME Referrals: Zain Cordova MD [Primary Care Provider] - Stand Alone Forms: Patient Portal/API
--- NOTE | 2024-03-15 07:32 | DI.RAD.S_ITS ---
PROCEDURE: XR FEMUR RT MIN 2V INDICATIONS: right hip and thigh pain, no trauma TECHNIQUE: 2 views of the femur were acquired. COMPARISON: None. FINDINGS: Bones: No fractures or dislocations. No suspicious bony lesions. Soft tissues: No suspicious soft tissue calcifications or masses. IMPRESSION: No acute bony abnormality. Dictated by: Yair Howard M.D. on 03/15/2024 at 8:44 Approved by: Yair Howard M.D. on 03/15/2024 at 8:44
--- NOTE | 2024-03-15 07:32 | DI.RAD.S_ITS ---
PROCEDURE: XR PELVIS 1-2V INDICATIONS: hip pain TECHNIQUE: 1 view(s) of the pelvis acquired. COMPARISON: None. FINDINGS: Bones: No fractures or dislocations. No suspicious bony lesions. Nonuniform joint space narrowing and osteophytic lipping of the acetabuli. Soft tissues: Visualized bowel gas pattern is normal. No suspicious soft tissue calcifications. IMPRESSION: Mild bilateral hip osteoarthritis. Dictated by: Yair Howard M.D. on 03/15/2024 at 8:44 Approved by: Yair Howard M.D. on 03/15/2024 at 8:45
[2024-03-15 07:34] VITALS: BP 108/62; PULSE 72; RESP 16; TEMP 36.7; O2SAT 96; BMI 25.8
[2024-03-15] MEDS: ACETAMINOPHEN 325 MG TABLET 650 MG PO (08:23)
[2024-03-15 08:57] VITALS: PULSE 60; O2SAT 94
[2024-03-15 08:58] VITALS: BP 130/69; PULSE 61; O2SAT 94
== END 2024-03-15 09:10 | disposition home or self-care (01) ==
PROVIDERS: Emergency Provider Emergency Medicine; PCP Family Medicine
DX: M16.11 Unilateral primary osteoarthritis, right hip (principal); G20.A1 Parkinson's disease without dyskinesia, without mention of fluctuations
CPT/HCPCS: 72170; 73552; 99283

== ENCOUNTER → 2024-03-26 13:05 | Outpatient (CLI) | payer MEDICARE, OTHER, SELFPAY ==
[2019-08-23 13:09] VITALS: BMI 26.3
--- NOTE | 2024-03-26 13:06 | DI.RAD.S_ITS ---
PROCEDURE: XR LUMBAR SPINE 3V INDICATIONS: back pain, bilat hip pain TECHNIQUE: 3 views of the lumbar spine were acquired. COMPARISON: None. FINDINGS: Lopq-lg-cltlchba dextroscoliosis convex to the right of the lumbar spine. Moderate degenerative changes of the lumbar spine with disc space narrowing, osteophytes, facet osseous hypertrophic changes most notably at L3-4, L4-5 and L5-S1. Mild degenerative changes sacroiliac joints and bilateral hips partially imaged. Mild vascular calcifications of the aorta and iliac vessels. Bones: 5 bhd-xmx-ppursho vertebrae are present. No radiographic evidence of vertebral body compression fractures. Pattern of constipation in the abdomen. IMPRESSION: Moderate degenerative changes of the lumbar spine as discussed above. If symptoms persist or worsen, or there is high clinical suspicion of lumbar abnormality, MRI could be performed. Dictated by: Ricky Marie M.D. on 03/28/2024 at 19:51 Approved by: Ricky Marie M.D. on 03/28/2024 at 19:54
== END ==
PROVIDERS: PCP Family Medicine; Referring Provider Family Medicine; Visit Provider Family Medicine
DX: M47.816 Spondylosis without myelopathy or radiculopathy, lumbar region (principal); M47.817 Spondylosis without myelopathy or radiculopathy, lumbosacral region; M62.838 Other muscle spasm; M79.651 Pain in right thigh; M54.9 Dorsalgia, unspecified; M25.551 Pain in right hip; M25.552 Pain in left hip
CPT/HCPCS: 72100

== ENCOUNTER → 2024-03-30 08:25 | Outpatient (CLI) | payer MEDICARE, OTHER, SELFPAY ==
[2019-08-23 13:09] VITALS: BMI 26.3
--- NOTE | 2024-03-30 08:26 | DI.MRI.S_ITS ---
PROCEDURE: MR LUMBAR SPINE WO CON INDICATIONS: Radiculopathy, lumbar region TECHNIQUE: Noncontrast sagittal T1 spin echo and T2 fast echo, sagittal STIR, and T2 fast spin echo through the lumbar spine. In cases with scoliosis, additional coronal T2 fast spin echo may be performed. COMPARISON: [facility], CR, XR LUMBAR SPINE 2-3V, 03/26/2024, 13:31. FINDINGS: Image quality: Excellent. Alignment and Curvature: Mild dextroconvex scoliotic curvature is seen. Mild retrolisthesis can be seen at the L2-L3 level. Minimal retrolisthesis is seen at L5-S1. Bone Marrow: Marrow is of normal overall signal. No acute vertebral body compression fractures. Spinal Cord: Conus medullaris terminates at the L1 level. Visualized cord demonstrates normal signal and size. Paraspinous Soft Tissues: No paravertebral masses. T12-L1: Normal appearance. L1-L2: Normal appearance. L2-L3: Moderate loss of disc height is seen. Loss of disc signal is seen. Moderate disc bulge is seen, which is eccentric to the left. Mild facet joint hypertrophy is seen. Moderate bilateral neural foraminal narrowing can be seen, left worse than right. Moderate central canal narrowing is seen. L3-L4: The disc height is well-preserved. Loss of disc signal is seen at this level. Moderate generalized disc bulge is seen. Mild facet joint hypertrophy is seen. There is moderate right-sided and mild left-sided neural foraminal narrowing. Mild central canal narrowing is seen. L4-L5: The disc height is well-preserved. Loss of disc signal is seen at this level. Moderate disc bulge is seen, which is eccentric to the right. There is a right subarticular disc extrusion, with mild superior migration of the disc material, as on series 4, image 9 and on series 6, image 26. At least moderate facet hypertrophy can be seen. There is moderate left-sided and moderate to severe right-sided neural foraminal narrowing. There is a mild degree of compression seen upon the exiting right L4 nerve root. Moderate central canal narrowing is seen. L5-S1: At least moderate loss of disc height and disc signal can be seen. Moderate generalized disc bulge is seen. There is a central disc osteophyte protrusion. Mild to moderate facet hypertrophy is seen. There is at least moderate bilateral neural foraminal narrowing seen, right worse than left. There is a minimal degree of compression seen upon the exiting nerve roots. Minimal central canal narrowing is seen. IMPRESSION: Multiple levels of significant lumbar spine degenerative change can be seen. Mild dextroconvex scoliotic curvature is seen. Dictated by: Castillo Cheng M.D. on 03/30/2024 at 11:45 Approved by: Castillo Cheng M.D. on 03/30/2024 at 11:49
== END ==
PROVIDERS: PCP Family Medicine; Referring Provider Physician Assistant; Visit Provider Physician Assistant
DX: M47.26 Other spondylosis with radiculopathy, lumbar region (principal); M47.27 Other spondylosis with radiculopathy, lumbosacral region; M41.9 Scoliosis, unspecified
CPT/HCPCS: 72148

== ENCOUNTER → 2024-05-06 16:20 | Outpatient (CLI) | payer MEDICARE, OTHER, SELFPAY ==
[2019-08-23 13:09] VITALS: BMI 26.3
[2024-05-06 17:17] LABS: Influenza A - CEPHEID Flu A NEGATIVE (NEGATIVE); Influenza B - CEPHEID Flu B NEGATIVE (NEGATIVE); Respiratory Syncytial Virus Negative (Negative)
[2024-05-06 17:32] LABS: COVID-19 CEPHEID 4-PLEX PCR Negative (Negative)
== END ==
PROVIDERS: PCP Family Medicine; Visit Provider Nurse Practitioner Family
DX: R05.9 Cough, unspecified (principal); R53.81 Other malaise; R53.83 Other fatigue
CPT/HCPCS: 0241U

== ENCOUNTER → 2024-05-06 16:56 | Outpatient (CLI) | payer MEDICARE, OTHER, SELFPAY ==
[2019-08-23 13:09] VITALS: BMI 26.3
--- NOTE | 2024-05-06 16:58 | DI.RAD.S_ITS ---
PROCEDURE: XR CHEST 2V INDICATIONS: Cough TECHNIQUE: 2 views of the chest were acquired. COMPARISON: [facility], CR, XR CHEST 1V, 08/23/2019, 12:39. FINDINGS: Surgical changes and devices: None. Lungs and pleura: Stable appearance of minimal streaking of the left lung base likely related to atelectasis versus scarring. No dense consolidation seen. No pleural effusions or pneumothorax. Mediastinum: Mediastinal contours are normal. Heart size is normal. Bones and chest wall: No suspicious bony abnormalities. Soft tissues appear unremarkable. IMPRESSION: Stable radiographic evaluation of the chest without acute cardiopulmonary abnormalities or focal consolidation. Dictated by: Boaz Rajan M.D. on 05/06/2024 at 18:46 Approved by: Boaz Rajan M.D. on 05/06/2024 at 18:47
== END ==
PROVIDERS: PCP Family Medicine; Referring Provider Nurse Practitioner Family; Visit Provider Nurse Practitioner Family
DX: R05.9 Cough, unspecified (principal); R53.81 Other malaise; R53.83 Other fatigue
CPT/HCPCS: 0241U; 71046

== ENCOUNTER → 2024-08-24 09:32 | Outpatient (CLI) | payer MEDICARE, OTHER, SELFPAY ==
[2019-08-23 13:09] VITALS: BMI 26.3
[2024-08-24 11:04] LABS: Alanine Aminotransferase 9 IU/L (<50); Albumin Globulin Ratio 1.7 (1.0-2.8); Alkaline Phosphatase 77 U/L (38-126); Aspartate Aminotransferase 26 IU/L (17-59); BUN Creatinine Ratio 29.5 (6-22); Bilirubin Total 0.8 mg/dL (0.2-1.3); Blood Urea Nitrogen 31 mg/dL (9-20); Calcium 9.9 mg/dL (8.4-10.2); Carbon Dioxide 26 mmol/L (22-32); Chloride 106 mmol/L (98-107); Estimated Glomerular Filt Rate > 60 mL/min (>60); Globulin 2.3 g/dL (1.7-4.1); Glucose 123 mg/dL (80-110); HEMOLYSIS < 15 (0-50); Magnesium 2.2 mg/dL (1.6-2.3); Potassium 4.3 mmol/L (3.4-5.1); Sodium 140 mmol/L (137-145); Total Protein 6.3 g/dL (6.3-8.2)
[2024-08-24 11:30] LABS: TSH w/ Reflex to FT4 3.72 uIU/mL (0.47-4.68)
[2024-08-25 17:10] LABS: Ionized Calcium 5.3 mg/dL (4.5-5.6)
== END ==
PROVIDERS: PCP Family Medicine; Referring Provider Psychiatry & Neurology Neurology; Visit Provider Psychiatry & Neurology Neurology
DX: R25.2 Cramp and spasm (principal)
CPT/HCPCS: 36415; 80053; 82330; 83735; 84443

== ENCOUNTER → 2025-03-11 09:52 | Outpatient (CLI) | payer MEDICARE, OTHER, SELFPAY ==
[2019-08-23 13:09] VITALS: BMI 26.3
[2025-03-11 11:06] LABS: Add Manual Diff / Slide Review NO; Hematocrit 43.7 % (41-53); Hemoglobin 15.0 g/dL (13.5-17.5); Lymphocytes Absolute Auto 1900 /uL (1100-4500); Mean Corpuscular HGB Conc 34.4 % (30-36); Mean Corpuscular Hemoglobin 30.4 PG (26-34); Mean Corpuscular Volume 88.5 fL (80-100); Platelet Count 226 X10^3/uL (150-400)
[2025-03-11 11:20] LABS: Ferritin 147 ng/mL (18-464)
[2025-03-11 11:49] LABS: Folate > 20.0 ng/mL (2.76-20.0); Vitamin B12 483 pg/mL (239-931)
== END ==
PROVIDERS: PCP Family Medicine; Referring Provider Family Medicine; Visit Provider Family Medicine
DX: G20.B2 Parkinson's disease with dyskinesia, with fluctuations (principal); G25.81 Restless legs syndrome
CPT/HCPCS: 36415; 82607; 82728; 82746; 85025